=== PATIENT | female | born 2005 | race Caucasian/White ===

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

== ENCOUNTER 2024-11-28 17:14 | Emergency (ER) | payer OTHER, SELFPAY ==
[2024-11-28 17:22] VITALS: BP 148/72; PULSE 88; RESP 16; TEMP 37.1; O2SAT 100
--- NOTE | 2024-11-28 17:39 | ED.URI ---
HPI - URI/Sore Throat General Chief Complaint: Upper Respiratory Infection Stated Complaint: Cough/SOB/Dizziness Time Seen by Provider: 11/28/24 17:40 Source: patient, RN notes reviewed and old records reviewed Mode of arrival: ambulatory Limitations: no limitations History of Present Illness HPI Narrative: Patient presents with complaints of URI symptoms and cough for a couple of weeks. She reports that she has tried multiple [id number] remedies. Has episodes where she is feeling better, then ends up feeling worse again. She reports intermittent fevers, productive cough, intermittent dizziness. She denies any falls as results of her dizziness and is not dizzy at this time. She reports this symptom has come and go throughout the course of her illness. She reports most bothersome symptom is her productive cough. She has had multiple sick contacts. Related Data Home Medications ?Medication ?Instructions ?Recorded ?Confirmed ?Last Taken ?Type dextroamphetamine-amphetamine ER 50 mg PO DAILY 12/11/22 11/28/24 Unknown History 50 mg capsule,3 bead,ext release 24hr (Mydayis) ergocalciferol (vitamin D2) 1,250 1,250 mcg PO WEEKLY 12/11/22 11/28/24 Unknown History mcg (50,000 unit) capsule fluoxetine 20 mg capsule 20 mg PO DAILY 12/11/22 11/28/24 Unknown History hydroxyzine HCl 10 mg tablet 10 mg PO DAILY PRN Anxiety 12/11/22 11/28/24 Unknown History cyclobenzaprine 5 mg tablet 5 mg PO DIRECTED 05/07/23 11/28/24 Unknown History norethindrone 1 mg-ethinyl 1 tablet PO DAILY 11/28/24 11/28/24 Unknown History estradiol 20 mcg (21)-iron 75 mg (7) tablet (Blisovi Fe 12/21 ()) Allergies Allergy/AdvReac Type Severity Reaction Status Date / Time amoxicillin Allergy Unknown Hives / Verified 11/28/24 17:20 Red Face amphetamine Allergy Unknown rash, Verified 11/28/24 17:20 nausea dextroamphetamine Allergy Unknown rash, Verified 11/28/24 17:20 nausea Review of Systems Review of Systems: All systems reviewed & are unremarkable except as noted in HPI and below Constitutional: Constitutional: Reports no additional constitutional complaints ENT: Reports system reviewed and no additional complaints, except as documented and Reports nasal discharge Cardiovascular: Cardiovascular: Reports no additional cardiovascular complaints Respiratory: Respiratory: Reports no additional respiratory complaints, Reports change in phlegm color, Reports chest congestion, Reports cough and Reports excessive phlegm production Gastrointestinal: Gastrointestinal: Reports no additional gastrointestinal complaints PMF Past Medical History Medical History ADHD Anxiety Asthma Colon ulcer Depression Endometriosis Trigeminal neuralgia Surgical History Surgical History History of tonsillectomy Social History Social History Smoking status: Never smoker Alcohol intake: never Substance use: never Gender identity (if verbalized by the patient): Female Comments At the time of my signature, I reviewed and agree with the nursing past medical, surgical, social, and family history. There is no relevant family history pertinent to the patient complaint. Exam Const: General: cooperative, no acute distress, alert and awake Orientation/consciousness: oriented to person, oriented to place and oriented to time HENMT: Head: normal to inspection Ears: TM's normal bilaterally Mouth: Yes moist mucous membranes Throat: posterior oropharynx abnormal erythema Resp: Effort & Inspection: normal respiratory effort and able to speak in complete sentences Auscultation: clear to auscultation bilaterally, crackles on the right in the lower lung olson, no rales, no rhonchi and no wheezes Cardio: Palpation: normal PMI Rate: regular rate Rhythm: regular rhythm Heart sounds: S1 normal heart sound present and S2 normal heart sound present Neuro: General: oriented to person, oriented to place and oriented to time Cranial nerves: Yes CN's II-XII intact bilaterally Psych: Appearance: grossly normal Thought process: Normal thought process present Insight: Good insight present (Psych) Judgement: Good judgement present (Psych) Course Course Level of Care: Express Care Visit Vital Signs Vital signs: Vital Signs Temperature 98.8 F 11/28/24 17:22 Pulse Rate 88 11/28/24 17:22 Respiratory Rate 16 11/28/24 17:22 Blood Pressure 148/72 H 11/28/24 17:22 Pulse Oximetry 100 11/28/24 17:22 Oxygen Delivery Room Air 11/28/24 17:22 Temperature 98.8 F 11/28/24 17:22 Pulse Rate 88 11/28/24 17:22 Respiratory Rate 16 11/28/24 17:22 Blood Pressure 148/72 H 11/28/24 17:22 Pulse Oximetry 100 11/28/24 17:22 Oxygen Delivery Room Air 11/28/24 17:22 Reviewed MDM - URI/Sore Throat MDM Narrative Medical decision making narrative: History and exam consistent with of atypical pneumonia that is prevalent within the community at this time. Patient with asthma as well. Start azithromycin, bronchodilators, prednisone. Patient nontoxic appearing, stable for discharge home. Discharge instructions reviewed with patient, as well as provided in writing per nursing staff. The instructions also include specific and strict return/GO TO THE ER as well as f/u information. All questions have been answered, and the patient deny any further questions with discharge and discharge plan. Ne Some parts of this dictation were generated by voice recognition software and may contain typographical and/or grammatical inaccuracies. Differential Diagnosis Differential diagnosis: Likely upper respiratory infection, otitis media, viral infection, influenza and pharyngitis Medical Records Attestation: I reviewed the patient's medical records. Lab Data Attestation: I reviewed the patient's lab results. Discharge Plan Discharge Clinical Impression: Atypical pneumonia Patient Disposition: Home, Self-Care Condition: Stable Instructions: Antibiotic Form, Community Acquired Pneumonia (ED) Additional Instructions: Take medications as prescribed. Follow-up with primary care provider. Emergency department for new or worse symptoms Patient Language: Divehi Prescriptions: New azithromycin 250 mg tablet See Rx Instructions .ROUTE .COMPLEX Qty: 6 0RF Rx Instructions: For 250 mg dose pack: take 500 mg today (day 1), then 250 mg for 4 days (days 2-5) prednisone 50 mg tablet 50 mg PO DAILY Qty: 5 0RF albuterol sulfate [Ventolin HFA] 90 mcg/actuation HFA aerosol inhaler 2 puff inhalation QID PRN (Reason: shortness of breath or wheezing) Qty: 8.5 0RF azithromycin 250 mg tablet See Rx Instructions .ROUTE .COMPLEX Qty: 6 0RF Rx Instructions: For 250 mg dose pack: take 500 mg today (day 1), then 250 mg for 4 days (days 2-5) prednisone 50 mg tablet 50 mg PO DAILY Qty: 5 0RF albuterol sulfate [Ventolin HFA] 90 mcg/actuation HFA aerosol inhaler 2 puff inhalation QID PRN (Reason: shortness of breath or wheezing) Qty: 8.5 0RF No Action ergocalciferol (vitamin D2) 1,250 mcg (50,000 unit) capsule 1,250 mcg PO WEEKLY hydroxyzine HCl 10 mg tablet 10 mg PO DAILY PRN (Reason: Anxiety) fluoxetine 20 mg capsule 20 mg PO DAILY dextroamphetamine-amphetamine [Mydayis] 50 mg capsule, ER triphasic 24 hr 50 mg PO DAILY cyclobenzaprine 5 mg tablet 5 mg PO DIRECTED norethindrone-e.estradiol-iron [Blisovi Fe 12/21 (28)] 1 mg-20 mcg (21)/75 mg (7) tablet 1 tablet PO DAILY Follow-up/Referrals: Jory,JANETH Weber [Primary Care Provider] - 2 Weeks Stand Alone Forms: Work/School Release IP Time of Disposition: 17:53
== END 2024-11-28 18:12 | disposition home or self-care (01) ==
PROVIDERS: Emergency Provider Nurse Practitioner Family; PCP Nurse Practitioner
DX: J18.9 Pneumonia, unspecified organism (principal); J45.909 Unspecified asthma, uncomplicated; N80.9 Endometriosis, unspecified; F90.9 Attention-deficit hyperactivity disorder, unspecified type; F41.9 Anxiety disorder, unspecified; F32.A Depression, unspecified
CPT/HCPCS: 99213; G0463

== ENCOUNTER 2025-01-28 13:54 | Emergency (ER) | payer OTHER, SELFPAY ==
[2025-01-28 14:23] VITALS: BP 149/91; PULSE 95; RESP 16; TEMP 36.6; O2SAT 100
--- NOTE | 2025-01-28 15:51 | ED.FEMALEGU ---
HPI - Female Genitourinary General Chief complaint: Vaginal Bleeding <Shana Javier PA-C - Last Filed: 01/29/25 11:39> Stated complaint: lower bad pain, heavy vag bleeding <Shana Javier PA-C - Last Filed: 01/29/25 11:39> Time Seen by Provider: 01/28/25 15:51 <Shana Javier PA-C - Last Filed: 01/29/25 11:39> Focused HPI: This is a 19 year old female that presents to the ER for vaginal bleeding. Reports she recently switched from the Nuva ring to the pill. She has been having sharp right lower abdominal pain since last night. Reports heavy vaginal bleeding. She saw her OB who sent her to the ER to r/o ectopic or cyst. GENERAL: Well-appearing, well-nourished, and in no acute distress. HEAD: Normocephalic, atraumatic. CHEST: Clear to auscultation. ?No respiratory distress. HEART: Regular rate and rhythm.? NEURO: ?Alert and oriented x3. Patient screened in triage and initial orders placed.? ?Additional care and disposition to be based upon?diagnostic testing and treatment. <Shana Javier PA-C - Last Filed: 01/29/25 11:39> History of Present Illness HPI Narrative: I agree with the assessment and documentation of Shana Javier PA-C. <Destini Gonzalez APRN - Last Filed: 01/28/25 22:33> Related Data Home medications: Home Medications ?Medication ?Instructions ?Recorded ?Confirmed ?Last Taken ?Type dextroamphetamine-amphetamine ER 50 mg PO DAILY 12/11/22 11/28/24 Unknown History 50 mg capsule,3 bead,ext release 24hr (Mydayis) ergocalciferol (vitamin D2) 1,250 1,250 mcg PO WEEKLY 12/11/22 11/28/24 Unknown History mcg (50,000 unit) capsule fluoxetine 20 mg capsule 20 mg PO DAILY 12/11/22 11/28/24 Unknown History hydroxyzine HCl 10 mg tablet 10 mg PO DAILY PRN Anxiety 12/11/22 11/28/24 Unknown History cyclobenzaprine 5 mg tablet 5 mg PO DIRECTED 05/07/23 11/28/24 Unknown History norethindrone 1 mg-ethinyl 1 tablet PO DAILY 11/28/24 11/28/24 Unknown History estradiol 20 mcg (21)-iron 75 mg (7) tablet (Blisovi Fe 12/21 ()) <Shana Javier PA-C - Last Filed: 01/29/25 11:39> Allergies/Adverse reactions: Allergies Allergy/AdvReac Type Severity Reaction Status Date / Time amoxicillin Allergy Unknown Hives / Verified 01/28/25 14:23 Red Face amphetamine Allergy Unknown rash, Verified 01/28/25 14:23 nausea dextroamphetamine Allergy Unknown rash, Verified 01/28/25 14:23 nausea <Shana Javier PA-C - Last Filed: 01/29/25 11:39> Review of Systems Review of Systems: All systems reviewed & are unremarkable except as noted in HPI and below <Destini Gonzalez APRN - Last Filed: 01/28/25 22:33> PMFSH Past Medical History Medical History: Medical History Colon ulcer Endometriosis ADHD Anxiety Depression Asthma Trigeminal neuralgia <Shana Javier PA-C - Last Filed: 01/29/25 11:39> Surgical History Surgical History: Surgical History History of tonsillectomy <Shana Javier PA-C - Last Filed: 01/29/25 11:39> Social History Social History: Social History Smoking status: Never smoker Alcohol intake: never Substance use: never Gender identity (if verbalized by the patient): Female <Shana Javier PA-C - Last Filed: 01/29/25 11:39> Exam Narrative: GENERAL: Well appearing, well-nourished, non-toxic, in no acute distress. HEAD: Normocephalic, atraumatic. NECK: Supple. No adenopathy, no masses. RESPIRATORY: Airway patent, respirations nonlabored. Clear to auscultation bilaterally, no rales, rhonchi, wheezing. CARDIOVASCULAR: Regular rate and rhythm without murmurs, rubs, or gallops. Peripheral pulses 2+ and equal bilaterally. ABDOMINAL: Soft, + tender, + guarding, + Amin's sign, nondistended, no hepatosplenomegaly. Normoactive BS. MUSCULOSKELETAL: Moves all extremities. Strength/ROM intact without gross deformities. SKIN: Warm, dry, normal color. No rashes. NEURO: A&O X3. Speech clear. Cranial nerves II-XII grossly intact. Steady gait. No ataxic movements. PSYCHIATRIC: Appropriate mood and affect. Normal interaction. <Destini Gonzalez, JANETH - Last Filed: 01/28/25 22:33> Course Vital Signs Vital signs: Vital Signs Temperature 97.9 F 01/28/25 14:23 Pulse Rate 95 01/28/25 14:23 Respiratory Rate 16 01/28/25 14:23 Blood Pressure 149/91 H 01/28/25 14:23 Pulse Oximetry 100 01/28/25 14:23 Oxygen Delivery Room Air 01/28/25 14:23 Temperature 97.9 F 01/28/25 14:23 Pulse Rate 66 01/28/25 19:32 Respiratory Rate 17 01/28/25 19:32 Blood Pressure 123/82 01/28/25 19:32 Pulse Oximetry 100 01/28/25 19:32 Oxygen Delivery Room Air 01/28/25 14:23 <Shana Javier PA-C - Last Filed: 01/29/25 11:39> Vital Signs Temperature 97.9 F 01/28/25 14:23 Pulse Rate 95 01/28/25 14:23 Respiratory Rate 16 01/28/25 14:23 Blood Pressure 149/91 H 01/28/25 14:23 Pulse Oximetry 100 01/28/25 14:23 Oxygen Delivery Room Air 01/28/25 14:23 Temperature 97.9 F 01/28/25 14:23 Pulse Rate 66 01/28/25 19:32 Respiratory Rate 17 01/28/25 19:32 Blood Pressure 123/82 01/28/25 19:32 Pulse Oximetry 100 01/28/25 19:32 Oxygen Delivery Room Air 01/28/25 14:23 <Destini Gonzalez APRN - Last Filed: 01/28/25 22:33> MDM - Female Genitourinary [facility] Narrative Medical decision making narrative: This is a 19 year old female that presents to the ER for vaginal bleeding. Reports she recently switched from the Nuva ring to the pill. She has been having sharp right lower abdominal pain since last night. Reports heavy vaginal bleeding. She saw her OB who sent her to the ER to r/o ectopic or cyst. Labs Ordered: CBC, CMP, PTT, INR, urinalysis, beta hCG quant Imaging Ordered: Pelvic TV ultrasound, CT abdomen pelvis Medications Ordered: Toradol 60 mg IM, Tylenol 1000 mg p.o., Macrobid p.o., Diflucan p.o., 1 L normal saline IV bolus Results: Patient's pelvic transvaginal ultrasound indicated a normal pelvic ultrasound. Risks: RPIASA score concerning for appendicitis, 1829-plan to do an abdominal/pelvis CT scan RIPASA Score for Acute Appendicitis from [facility] on 01/28/2025 All calculations should be rechecked by clinician prior to use RESULT SUMMARY: 8 points Likely appendicitis. The cutoff value of 7.5 points was 98% sensitive and 81% specific for diagnosis of appendicitis. INPUTS: Sex ?> 0.5 = Female Age ?> 1 = <=0 Foreign national ?> 0 = No Right iliac fossa (RIF) pain ?> 0 = No Pain migration to RIF ?> 0.5 = Yes Anorexia ?> 0 = No Nausea & vomiting ?> 0 = No Duration of symptoms ?> 1 = <=8 hrs RIF tenderness ?> 0 = No Guarding ?> 2 = Yes Rebound tenderness ?> 1 = Yes Rovsing sign ?> 2 = Yes Temperature between 37?C and 39?C ?> 0 = No Elevated white blood cell count ?> 0 = No Negative urine analysis (abscence of blood, WBCs, bacteria) ?> 0 = No Diagnosis: UTI, awaiting CT results for complete diagnosis-pt left before treatment complete Consults: Pt left before treatment complete Patient Education/Shared MDM: 183- Upon re-examination after Toradol administration, pt continues to have significant RLQ pain that increases with palpation, + Amin's sign, + guarding IV placed, Normal Saline IV bolus ordered, CT scan order placed 2199-Pt endorses improvement following medication administration. She was advised we are still awaiting CT scan results. 2229-Pt left before treatment complete. Stable at time of leaving ED. <Destini Gonzalez APRN - Last Filed: 01/28/25 22:33> Differential Diagnosis Differential diagnosis: Likely urinary tract infection, ovarian cyst, ruptured ovarian cyst, cyst of Bartholin's gland and cystitis <Destini Gonzalez APRN - Last Filed: 01/28/25 22:33> Lab Data Attestation: I reviewed the patient's lab results. <Destini Gonzalez APRN - Last Filed: 01/28/25 22:33> Result diagrams: 01/28/25 16:22 01/28/25 16:22 <Shana Javier PA-C - Last Filed: 01/29/25 11:39> Labs: Lab Results 01/28/25 01/28/25 Range/Units 16:22 16:33 WBC 9.1 (4.5-10.0) K/mm3 RBC 4.33 (4.2-5.4) M/mm3 Hgb 12.6 (12.0-15.0) g/dL Hct 37.5 (37.0-47.0) % MCV 86.6 (80-100) fl MCH 29.1 (26-34) pg MCHC 33.6 (32-36) g/dl RDW 11.9 (11.5-14.5) % Plt Count 206 (150-375) k/mm3 MPV 12.2 H (7.4-10.4) fl Immature Gran % (Auto) 0.2 (0-0.5) % Neut % (Auto) 66.4 (45.5-73.1) % Lymph % (Auto) 24.9 (18.3-44.2) % Curry % (Auto) 5.4 (2.6-8.5) % Eos % (Auto) 2.5 (0-4.4) % Baso % (Auto) 0.6 (0.2-1.2) % Lymph # (Auto) 2.26 (0.9-3.2) K/mm3 Curry # (Auto) 0.5 (0.1-0.6) K/mm3 Eos # (Auto) 0.2 (0-0.3) K/mm3 Baso # (Auto) 0.1 (0.0-0.1) K/mm3 Abs Immat Gran (auto) 0.02 (0.00-0.031) K/mm3 Absolute Neuts (auto) 6.0 (1.3-6.7) K/mm3 Absolute Nucleated RBC 0.000 (0.0-0.012) K/mm3 Nucleated RBC % 0.0 (0.0-0.2) % PT 12.7 (11.1-14.7) Seconds INR 0.9 APTT 26.0 (22.3-36.8) Seconds Sodium 140 (137-145) mmol/L Potassium 4.0 (3.4-5.0) mmol/L Chloride 106 (98-107) mmol/L Carbon Dioxide 24 (22-30) mmol/L Anion Gap 10 (4-12) mmol/L BUN 10 (7-17) mg/dL Creatinine 0.61 L (0.7-1.0) mg/dL Estim Creat Clear Calc 150 ml/min Estimated GFR > 60 (59 - ) Glucose 86 (65-110) mg/dL Calcium 9.4 (8.4-10.2) mg/dL Total Bilirubin 0.5 (0.2-1.3) mg/dL AST 21 (14-36) U/L ALT 23 (6-35) U/L Alkaline Phosphatase 51 (38-126) U/L Total Protein 8.0 (6.3-8.2) g/dL Albumin 4.6 (3.5-5.1) g/dL Beta HCG, Quant < 2.39 mIU/ML Urine Color Yellow (Yellow) Urine Appearance Clear (Clear) Urine pH 7.5 (5.0-9.0) Ur Specific [place] 1.018 (1.001-1.035) Urine Protein Trace (Negative) mg/dL Urine Glucose (UA) Negative (Negative) mg/dL Urine Ketones Negative (Negative) mg/dL Ur Blood (Man) 3+ H (Negative) Urine Nitrate Negative (Negative) Urine Bilirubin Negative (Negative) Urine Urobilinogen 0.2 (<2.0) mg/dL Leukocyte Esterase Rfl 2+ H (Negative) PAUL/UL Urine RBC >100 H (0-2) /hpf Urine WBC 21-50 H (0-3) /hpf Ur Squamous Epith Cells None seen (Few) /hpf Urine Bacteria None seen /hpf Urine Casts 0-2 POC Urine HCG, Qual Negative (Negative) <Shana Javier PA-C - Last Filed: 01/29/25 11:39> Lab Results 01/28/25 01/28/25 Range/Units 16:22 16:33 WBC 9.1 (4.5-10.0) K/mm3 RBC 4.33 (4.2-5.4) M/mm3 Hgb 12.6 (12.0-15.0) g/dL Hct 37.5 (37.0-47.0) % MCV 86.6 (80-100) fl MCH 29.1 (26-34) pg MCHC 33.6 (32-36) g/dl RDW 11.9 (11.5-14.5) % Plt Count 206 (150-375) k/mm3 MPV 12.2 H (7.4-10.4) fl Immature Gran % (Auto) 0.2 (0-0.5) % Neut % (Auto) 66.4 (45.5-73.1) % Lymph % (Auto) 24.9 (18.3-44.2) % Curry % (Auto) 5.4 (2.6-8.5) % Eos % (Auto) 2.5 (0-4.4) % Baso % (Auto) 0.6 (0.2-1.2) % Lymph # (Auto) 2.26 (0.9-3.2) K/mm3 Curry # (Auto) 0.5 (0.1-0.6) K/mm3 Eos # (Auto) 0.2 (0-0.3) K/mm3 Baso # (Auto) 0.1 (0.0-0.1) K/mm3 Abs Immat Gran (auto) 0.02 (0.00-0.031) K/mm3 Absolute Neuts (auto) 6.0 (1.3-6.7) K/mm3 Absolute Nucleated RBC 0.000 (0.0-0.012) K/mm3 Nucleated RBC % 0.0 (0.0-0.2) % PT 12.7 (11.1-14.7) Seconds INR 0.9 APTT 26.0 (22.3-36.8) Seconds Sodium 140 (137-145) mmol/L Potassium 4.0 (3.4-5.0) mmol/L Chloride 106 (98-107) mmol/L Carbon Dioxide 24 (22-30) mmol/L Anion Gap 10 (4-12) mmol/L BUN 10 (7-17) mg/dL Creatinine 0.61 L (0.7-1.0) mg/dL Estim Creat Clear Calc 150 ml/min Estimated GFR > 60 (59 - ) Glucose 86 (65-110) mg/dL Calcium 9.4 (8.4-10.2) mg/dL Total Bilirubin 0.5 (0.2-1.3) mg/dL AST 21 (14-36) U/L ALT 23 (6-35) U/L Alkaline Phosphatase 51 (38-126) U/L Total Protein 8.0 (6.3-8.2) g/dL Albumin 4.6 (3.5-5.1) g/dL Beta HCG, Quant < 2.39 mIU/ML Urine Color Yellow (Yellow) Urine Appearance Clear (Clear) Urine pH 7.5 (5.0-9.0) Ur Specific [place] 1.018 (1.001-1.035) Urine Protein Trace (Negative) mg/dL Urine Glucose (UA) Negative (Negative) mg/dL Urine Ketones Negative (Negative) mg/dL Ur Blood (Man) 3+ H (Negative) Urine Nitrate Negative (Negative) Urine Bilirubin Negative (Negative) Urine Urobilinogen 0.2 (<2.0) mg/dL Leukocyte Esterase Rfl 2+ H (Negative) PAUL/UL Urine RBC >100 H (0-2) /hpf Urine WBC 21-50 H (0-3) /hpf Ur Squamous Epith Cells None seen (Few) /hpf Urine Bacteria None seen /hpf Urine Casts 0-2 POC Urine HCG, Qual Negative (Negative) <Destini Gonzalez APRN - Last Filed: 01/28/25 22:33> Imaging Data Attestation: I personally reviewed and interpreted this imaging study as follows: <Destini Gonzalez APRN - Last Filed: 01/28/25 22:33> Radiologist's impression: Impressions Pelvic/Transvag US 01/28/25 18:03 IMPRESSION: normal pelvic ultrasound. <Destini Gonzalez APRN - Last Filed: 01/28/25 22:33> Critical Care Time Critical Care Time Critical Care Time: No <Shana Javier PA-C - Last Filed: 01/29/25 11:39> Discharge Plan Discharge Clinical Impression: Dysfunctional uterine bleeding, Right lower quadrant abdominal pain Urinary tract infection Qualifiers: Urinary tract infection type: acute cystitis Hematuria presence: without hematuria Qualified Code(s): N30.00 - Acute cystitis without hematuria <Shana Javier PA-C - Last Filed: 01/29/25 11:39> Patient Disposition: Elopement After Seen by Prov <Shana Javier PA-C - Last Filed: 01/29/25 11:39> Condition: Stable <MICHAEL Kohler Last Filed: 01/29/25 11:39> Patient Language: Japanese <Shana Javier PA-C - Last Filed: 01/29/25 11:39> Prescriptions: New nitrofurantoin monohyd/m-cryst [Macrobid] 100 mg capsule 100 mg PO Q12H 5 Days Qty: 10 0RF Rx Instructions: must administer with a meal/food No Action ergocalciferol (vitamin D2) 1,250 mcg (50,000 unit) capsule 1,250 mcg PO WEEKLY hydroxyzine HCl 10 mg tablet 10 mg PO DAILY PRN (Reason: Anxiety) fluoxetine 20 mg capsule 20 mg PO DAILY dextroamphetamine-amphetamine [Mydayis] 50 mg capsule, ER triphasic 24 hr 50 mg PO DAILY cyclobenzaprine 5 mg tablet 5 mg PO DIRECTED norethindrone-e.estradiol-iron [Blisovi Fe 12/21 (28)] 1 mg-20 mcg (21)/75 mg (7) tablet 1 tablet PO DAILY azithromycin 250 mg tablet See Rx Instructions .ROUTE .COMPLEX Qty: 6 0RF Rx Instructions: For 250 mg dose pack: take 500 mg today (day 1), then 250 mg for 4 days (days 2-5) prednisone 50 mg tablet 50 mg PO DAILY Qty: 5 0RF albuterol sulfate [Ventolin HFA] 90 mcg/actuation HFA aerosol inhaler 2 puff inhalation QID PRN (Reason: shortness of breath or wheezing) Qty: 8.5 0RF azithromycin 250 mg tablet See Rx Instructions .ROUTE .COMPLEX Qty: 6 0RF Rx Instructions: For 250 mg dose pack: take 500 mg today (day 1), then 250 mg for 4 days (days 2-5) prednisone 50 mg tablet 50 mg PO DAILY Qty: 5 0RF albuterol sulfate [Ventolin HFA] 90 mcg/actuation HFA aerosol inhaler 2 puff inhalation QID PRN (Reason: shortness of breath or wheezing) Qty: 8.5 0RF <Shana Javier PA-C - Last Filed: 01/29/25 11:39> Follow-up/Referrals: Jory,JANETH Weber [Primary Care Provider] - <Shana Javier PA-C - Last Filed: 01/29/25 11:39> Time of Disposition: 22:33 <Shana Javier PA-C - Last Filed: 01/29/25 11:39> 22:33 <Destini Gonzalez APRN - Last Filed: 01/28/25 22:33>
[2025-01-28] MEDS: ACETAMINOPHEN 500 MG TABLET 1000 MG PO (16:14)
[2025-01-28 16:31] LABS: Basophils Absolute Auto 0.1 K/mm3 (0.0-0.1); Basophils Percent Auto 0.6 % (0.2-1.2); Eosinophils Absolute Auto 0.2 K/mm3 (0-0.3); Eosinophils Percent Auto 2.5 % (0-4.4); Hematocrit 37.5 % (37.0-47.0); Hemoglobin 12.6 g/dL (12.0-15.0); Immature Granulocyte Absolute 0.02 K/mm3 (0.00-0.031); Immature Granulocyte Percent A 0.2 % (0-0.5); Lymphocytes Absolute Auto 2.26 K/mm3 (0.9-3.2); Lymphocytes Percent Auto 24.9 % (18.3-44.2); Mean Corpuscular HGB Conc 33.6 g/dl (32-36); Mean Corpuscular Hemoglobin 29.1 pg (26-34); Mean Corpuscular Volume 86.6 fl (80-100); Mean Platelet Volume 12.2 fl (7.4-10.4); Monocytes Absolute Auto 0.5 K/mm3 (0.1-0.6); Monocytes Percent Auto 5.4 % (2.6-8.5); Neutrophils Percent Auto 66.4 % (45.5-73.1); Platelet Count Result 206 k/mm3 (150-375); Red Blood Count 4.33 M/mm3 (4.2-5.4); Red Cell Distribution Width 11.9 % (11.5-14.5); White Blood Count 9.1 K/mm3 (4.5-10.0)
[2025-01-28 16:34] LABS: Add Urine Microscopic? YES; Appearance Urine Clear (Clear); Bacteria Urine None Seen /hpf; Bilirubin Urine Negative (Negative); Blood Urine 3+ (Negative); Color Urine Yellow (Yellow); Glucose Urine UA Negative (Negative); Ketones Urine Negative (Negative); Leukocyte Esterase Ur 2+ LEU/UL (Negative); Nitrate Urine Negative (Negative); Non Pathogenic Casts 0-2; Protein Urine Trace mg/dL (Negative); RBC Urine >100 /hpf (0-2); Specific Grav Ur 1.018 (1.001-1.035); Squamous Epithelial Cell Urine None Seen /hpf (Few); Urobilinogen Urine 0.2 mg/dL (<2.0); WBC Urine 21-50 /hpf (0-3); pH Urine 7.5 (5.0-9.0)
[2025-01-28 16:35] LABS: BEDSIDEPREGUCG Negative (Negative)
[2025-01-28 16:41] LABS: Alanine Aminotransferase 23 U/L (6-35); Albumin Level 4.6 g/dL (3.5-5.1); Alkaline Phosphatase 51 U/L (38-126); Anion Gap 10 mmol/L (4-12); Aspartate Amino Transferase 21 U/L (14-36); Bilirubin,Total 0.5 mg/dL (0.2-1.3); Blood Urea Nitrogen 10 mg/dL (7-17); Calcium 9.4 mg/dL (8.4-10.2); Carbon Dioxide 24 mmol/L (22-30); Chloride 106 mmol/L (98-107); Estimated CRCL calculation 150 ml/min; Estimated Glomerular Filt Rate > 60; Glucose 86 mg/dL (65-110); Sodium 140 mmol/L (137-145)
[2025-01-28 16:46] LABS: INR 0.9; Prothrombin Time 12.7 Seconds (11.1-14.7)
[2025-01-28 16:58] LABS: Beta HCG Quantitative < 2.39 mIU/ML
[2025-01-28] MEDS: KETOROLAC (*BKC) 60 MG/2 ML VIAL IM (18:06)
[2025-01-28] MEDS: NITROFURANTOIN MONOHYD MACROCR 100 MG CAP PO (18:06)
[2025-01-28] MEDS: FLUCONAZOLE 100 MG TABLET PO (18:06)
[2025-01-28] MEDS: SODIUM CHLORIDE 0.9% IV 1,000 ML 999 ML IV CONT (18:58)
[2025-01-28 19:32] VITALS: BP 123/82; PULSE 66; RESP 17; O2SAT 100
== END 2025-01-28 22:16 | disposition left against medical advice (07) ==
PROVIDERS: Physician Assistant; Emergency Provider Registered Nurse; PCP Nurse Practitioner
DX: N93.8 Other specified abnormal uterine and vaginal bleeding (principal); N30.00 Acute cystitis without hematuria; R10.31 Right lower quadrant pain; J45.909 Unspecified asthma, uncomplicated; N80.9 Endometriosis, unspecified; Z79.3 Long term (current) use of hormonal contraceptives; F41.9 Anxiety disorder, unspecified; F32.A Depression, unspecified; Z79.899 Other long term (current) drug therapy; N83.02 Follicular cyst of left ovary; N83.01 Follicular cyst of right ovary
CPT/HCPCS: 36415; 74177; 76830; 76856; 80053; 81001; 81025; 84702; 85025; 85610; 85730; 87086; 96372; 99284; A9270; J1885; J7030; Q9967

== ENCOUNTER 2025-09-16 09:03 | Emergency (ER) | payer OTHER, SELFPAY ==
--- OUTSIDE RECORDS SUMMARY | 2025-09-15 10:37 | XMS_ITS | Encounter Summary ---
Author Organization [facility] Address [address] [place] [address] Care Team Providers Care Illuminating Engineer Name Role Phone Jory, Tia ARSENIO Primary Care Provider [phone] Reason for Referral * Imaging (Emergency) - New Request Specialty Diagnoses / Procedures Referred By Jade burks Referred To Contact RADIOLOGY Procedures US OB TRANSVAG Mariaa Guerra APRN [address] [place] [address] Phone: tel: fax: Referral ID Status Reason Start Date Expiration Date V isits Requested Visits Authorized [id number] New Request 09/15/2025 09/15/2026 1 1 Reason for Visit * Reason Comments Vaginal Bleeding Encounter Details Date Type Department Care Team (Late st Contact Info) Description 09/15/2025 10:37 AM CDT - 09/15/2025 1:53 PM CDT Emergency [facility] [place] [address] Mariaa Guerra APRN [address] [place] [address] Vaginal Bleeding Discharge Disposition: Home or Self Care (Routine Discharge) Social History Tobacco Use Types Packs/Day Years Used Date Smoking Tobacco: Never Passive Smoke Exposure: Never Smokeless Tobacco: Never Alcohol Use Standard Drinks/Week Comments Not Currently 0 (1 standard drink = 0.6 oz pur e alcohol) AUDIT-C Answer Date Recorded Frequency of Alcohol Consumption Never 01/19/2019 Average Number of Drinks Not on file 019 Frequency of Binge Drinking Not on file 01/02 PHQ-2 Answer Date Recorded Patient Health Questionnaire-2 Score 0 06/23/2025 Comments Yes Sex and Gender Information Value Date Recorded Sex Assigned at Female 03/23/2025 12:06 PM CDT Legal Sex Female 9:26 PM CDT Gender Identity Not on file Sexual Orientation Not on file documented as of this encounter Last Filed Vital Signs Vital Sign Reading Time Taken Comments Blood Pressure 124/72 09/15/2025 1:00 PM CDT Pulse 116 09/15/2025 10:28 AM CDT Temperature 36.8 C (98.3 F) 09/15/2025 10:28 AM CDT Respiratory Rate 18 09/15/2025 10:28 AM CDT Oxygen Saturation 99% 09/15/2025 1:00 PM CDT Inhaled Oxygen Concentration - - Weight 93.5 kg (206 lb 2.1 oz) 09/15/2025 10:28 AM CDT Height 172.7 cm (5' 8) 09/15/2025 10:28 AM CDT Body Mass Index 31.34 09/15/2025 10:28 AM CDT documented in this encounter Functional Status * Calculated C-SSRS Risk Score (Lifetime/Recent) Answer Date of Assessment Author Status No Risk Indicated 09/15/2025 10:30 AM CDT Lorne Orozco RN Active * [place] Suicide Severity Rating Scale (Screener/Recent Self-Report) Question Answer Date of Assessment Author Status 1. Wish to be (Past 1 Month) No 09/15/2025 10:30 AM IBANT Cecilia Orozco, TITI landinve 2. Non-Specific Active Suicidal Thoughts (Past 1 Month) No 09/15/2025 10:30 AM CDT Cecilia Orozco, TITI Mora tive 6. Suicidal Behavior (Lifetime) No 09/15/2025 10:30 AM IBANT Cecilia Orozco, TITI najera documented as of this encounter Discharge Instructions * Discharge Instructions* Mariaa Guerra APRN - 09/15/2025 10:59 AM CDT Make sure that you are drinking plenty of fluids. Pelvic rest. Pelvic rest means that absolutely noinsertions of any kind into the vagina. Do not perform any overly strenuous activities. Follow-up with your WREATH MACHINE TENDER for reevaluation. Seek immediate evaluation for any concerns such as heavy bleeding or severe abdominal pain. If this occurs please return directly to emergency room for reevaluation. Emergency Departments (ED) provide medical screening exams and initial stabilizing treatment of emergency medical conditions. Medicine is an inexact science and many conditions cannot be diagnosed orcompletely treated during a single ED visit. Your treating healthcare provider(s) today feel your condition has been stabilized so further care as an outpatient is reasonable. Emergency care does notsubstitute for complete, ongoing, or follow-up care by your primary care physician or sourcing consultant. Your medication list was reviewed prior to treatment, and at discharge, by the treating provider for the purpose of this outpatient visit only. Please review this entire medication list with your pharmacist, primary care physician, and specialist(s). It is your responsibility to share any new medication instructions you received this visit with your doctor(s). Although no medicine is without risk, your healthcare provider today feels reasonable decisions were made concerning starting new medications and stopping or changing the dosages of your usual medications until you receive follow-up care. Take medications only as directed. Many medications can cause drowsiness, especially those for pain, anxiety, muscle spasms, nausea, and allergies. DO NOT drive, drink alcohol, operate power machinery, or participate in potentially dangerous activities if taking medicines that make you tired. Chronic pain is best managed by pain specialists or primary care physicians, so narcotic refills are not routinely dispensed in the ED. DO NOT take multiple medications containing acetaminophen (Tylenol), such as many narcotic drug combinations and itst-rfm-uznievt cold medicines. Your feedback is important to us. Please fill out the survey you will get in the mail. We need yourinput to give you the best care possible! With your feedback we??ll know where we need to focus ourefforts to provide very good service to our patients! DARI Chavez [employer] * Attachments The following attachments cannot be sent through Care Everywhere. * Bleeding In Early (Serbian) * Quitting smoking for adults (Serbian) documented in this encounter Medications at Time of Discharge albuterol sulfate HFA (VENTOLIN HFA) 108 (90 Base) MCG/ACT inhalerIndications: Mild intermittent asthma without complication (HHS/HCC) Inhale 2 puffs into the lungs every 6 (six) hours as needed. 18 g 1 03/11/2024 BLISOVI FE 12/21 1-20 MG-MCG tabletIndications:E ncounter for contraceptive management, unspecified type TAKE 1 TABLET BY MOUTH DAILY 28 tablet 6 03/16/2025 clindamycin (CLEOCIN T) 1 % gel Apply topically 2 (two) times daily. 03/16/2025 drospirenone-ethiny l estradiol (TRAN) 3-0.03 MG tablet Take 1 tablet by mouth daily. 01/30/2025 fluticasone propionate (FLONASE) 50 MCG/ACT nasal sprayIndications:Se asonal allergic rhinitis due to other allergic trigger 1 spray by Nasal route daily. 15.8 mL 2 02/11/2024 sertraline (ZOLOFT) 50 MG tabletIndications:M uscular pain,Anxiety Take 1 tablet (50 mg total) by mouth daily. 90 tablet 1 03/23/2025 Spacer/Aero-Holding Chambers DeviceIndications:M ild intermittent asthma, unspecified whether complicated (HHS/HCC) Use with albuterol inhaler 1 each 02/11/2024 documented as of this encounter ED Notes * Tabby Poole RN - 09/15/2025 11:01 AM CDT Pt unable to provide urine sample at this time, provided with supplies for clean catch and given instructions. * Mariaa Guerra APRN - 09/15/2025 10:30 AM CDT ED NOTE Chief Complaint Chief Complaint Patient presents with Vaginal Bleeding History of Present Illness Patient arrives to emergency room today for evaluation of vaginal bleeding and cramping. Patient says that she has 4 weeks . Says her last menstrual period was June 20. Patient says this is her first . Says that she has been to an OB appointment in which they had an ultrasound performed and unable to identify a sac, but nothing further. Says the bleeding has been light. Says thather quant has been repeated and did not double as expected last being in the 500 range. Patient denies any other complaints such as fever, chills, body aches, nausea, vomiting, diarrhea, chest pain, difficulty breathing, or any other complaints. Vaginal Bleeding Medical History ALLERGIES: Review of patient's allergies indicates: Allergen Reactions Amphetamine-Dextroamphetamine Hives and Unknown Shrimp (Diagnostic) Unknown Amoxicillin GI Upset Stomach ache and rash Toradol [Ketorolac Tromethamine] Nausea Only MEDICATIONS: Prior to Admission medications Medication Sig Start Date End Date Taking? Authorizing Provider albuterol sulfate HFA (VENTOLIN HFA) 108 (90 Base) MCG/ACT inhaler Inhale 2 puffs into the lungs every 6 (six) hours as needed. 03/11/24 Tia Corley NP BLISOVI FE 12/21 1-20 MG-MCG tablet TAKE 1 TABLET BY MOUTH DAILY 03/16/25 Tia Corley NP clindamycin (CLEOCIN T) 1 % gel Apply topically 2 (two) times daily. 03/16/25 Default History Genericprovider drospirenone-ethinyl estradiol (TRAN) 3-0.03 MG tablet Take 1 tablet by mouth daily. 01/30/25 Default History Genericprovider fluticasone propionate (FLONASE) 50 MCG/ACT nasal spray 1 spray by Nasal route daily. 02/11/24 Al Guillermo DO sertraline (ZOLOFT) 50 MG tablet Take 1 tablet (50 mg total) by mouth daily. 03/23/25 09/19/25 Tia Corley NP Spacer/Aero-Holding Chambers Device Use with albuterol inhaler 02/11/24 Al Guillermo DO PAST MEDICAL HISTORY: Past Medical History: Diagnosis Date ADHD (attention deficit hyperactivity disorder) Allergy Anxiety Asthma (HHS/HCC) Depression Hypertension Neuromuscular disorder (CMS/HCC HHS/HCC) PCOS (polycystic ovarian syndrome) 03/2025 Urinary tract infection PAST SURGICAL HISTORY: Past Surgical History: Procedure Laterality Date ADENOIDECTOMY TONSILLECTOMY FAMILY HISTORY: Family History Problem Relation Name Age of Onset Asthma Mother Yuliet Gale Other (skin cancer) Mother Yuliet Gale Cancer Mother Yuliet Gale Depression Mother Yuilet Gale Early Hearing Loss Mother Yuliet Gale Stroke Maternal Grandmother Claudette gale Arthritis Maternal Grandmother Claudette gale Depression Maternal Grandmother Claudette gale Mental Health Maternal Grandmother Claudette gale Hypertension Maternal Grandfather John gale Asthma Brother Gustabo Gale Depression Brother Gustabo Gale SOCIAL HISTORY: History Smoking Status Never Smokeless Tobacco Never Social History Substance and Sexual Activity Alcohol Use Not Currently Social History Substance and Sexual Activity Drug Use Never Physical Exam Filed Vitals: 09/15/25 1028 09/15/25 1230 09/15/25 1245 BP: (!) 145/100 123/67 Pulse: (!) 116 Resp: 18 Temp: 98.3 ??F (36.8 ??C) TempSrc: Oral SpO2: 100% 99% Weight: 93.5 kg (206 lb 2.1 oz) Height: 1.727 m (5' 8) Physical Exam Vitals and nursing note reviewed. Constitutional: General: She is not in acute distress. Appearance: Normal appearance. She is well-developed. She is not ill-appearing or toxic-appearing. Comments: Nontoxic appearing HENT: Head: Normocephalic and atraumatic. Nose: Nose normal. Mouth/Throat: Mouth: Mucous membranes are moist. Pharynx: Oropharynx is clear. Eyes: Conjunctiva/sclera: Conjunctivae normal. Cardiovascular: Rate and Rhythm: Normal rate and regular rhythm. Pulses: Normal pulses. Heart sounds: Normal heart sounds. Pulmonary: Effort: Pulmonary effort is normal. No respiratory distress. Breath sounds: Normal breath sounds. Abdominal: General: Bowel sounds are normal. There is no distension. Palpations: Abdomen is soft. Tenderness: There is no abdominal tenderness. There is no guarding or rebound. Musculoskeletal: General: Normal range of motion. Cervical back: Normal range of motion and neck supple. Skin: General: Skin is warm and dry. Capillary Refill: Capillary refill takes less than 2 seconds. Neurological: General: No focal deficit present. Mental Status: She is alert and oriented to person, place, and time. Psychiatric: Mood and Affect: Mood normal. Behavior: Behavior normal. Diagnostic Studies / Procedures ELECTROCARDIOGRAMS: No results found for this visit on 09/15/25. LABORATORY STUDIES: Results for orders placed or performed during the hospital encounter of 09/15/25 CBC W/DIFF AUTOMATED Result Value Ref Range WBC 4.94 4.5 - 11.0 x10'3/uL RBC 4.00 (L) 4.20 - 5.40 x10'6/uL HGB 11.5 (L) 12.0 - 16.0 G/DL HCT 33.8 (L) 38.0 - 48.0 % MCV 84.5 81.0 - 99.0 FL MCH 28.8 27.0 - 31.0 PG MCHC 34.0 32.0 - 36.0 G/DL RDW 12.5 11.5 - 14.5 % PLT 182 130 - 400 x10'3/uL MPV 12.1 9.3 - 12.2 FL DIFFERENTIAL TYPE AUTOMATED DIFFERENTIAL NEUTROPHILS % 54.0 % LYMPHOCYTES % 34.2 % MONOCYTES % 6.1 % EOSINOPHILS 4.7 % BASOPHILS 0.8 % IMMATURE GRANS % 0.2 % ABS. NEUTROPHILS 2.67 1.80 - 7.70 x10'3/uL ABS. LYMPHOCYTES 1.69 1.00 - 4.80 x10'3/uL ABS. MONOCYTES 0.30 0.24 - 0.86 x10'3/uL ABS. EOSINOPHILS 0.23 0.04 - 0.36 x10'3/uL ABS. BASOPHILS 0.04 0.01 - 0.08 x10'3/uL ABS. IMMATURE GRANULOCYTES 0.01 0.00 - 0.49 x10'3/uL BASIC METABOLIC PANEL Result Value Ref Range GLUCOSE 96 70 - 99 MG/DL BUN 7 7 - 18 MG/DL CREATININE S/P/B 0.46 (L) 0.55 - 1.02 MG/DL SODIUM S/P/B 139 136 - 145 MMOL/L POTASSIUM S/P/B 4.0 3.5 - 5.1 MMOL/L CHLORIDE S/P/B 109 97 - 115 MMOL/L CO2 25.0 21 - 32 MMOL/L CALCIUM S/P/B 9.3 8.5 - 10.1 MG/DL ANION GAP 5.0 2 - 10 MMOL/L BUN CREATININE RATIO 15.1 6 - 26 GFR ESTIMATE >90 >90 ML/MIN/1.73 M2 URINALYSIS Result Value Ref Range SPECIMEN TYPE URINE CLEAN CATCH COLOR (U) COLORLESS TRANSPARENCY CLEAR SPECIFIC GRAVITY (U) 1.004 1.001 - 1.030 U PH 6.5 5.0 - 9.0 LEUKOCYTES (U) 25 (A) NEGATIVE NITRITES NEGATIVE NEGATIVE PROTEIN RANDOM (U) NEGATIVE <30 MG/DL GLUCOSE (U) NORMAL NORMAL MG/DL KETONES MG/DL (U) NEGATIVE NEGATIVE MG/DL UROBILINOGEN NORMAL NORMAL MG/DL BILIRUBIN (U) NEGATIVE NEGATIVE MG/DL BLOOD (U) 2+ (A) NEGATIVE MUCUS RARE /LPF WBC/HPF 1 <6 /HPF RBC/HPF <1 <6 /HPF SQUAMOUS EPITHELIALS RARE /HPF Quantitative HCG Result Value Ref Range HCG QUANTITATIVE 539 MIU/ML BLOOD TYPING, ABO AND RH Result Value Ref Range ABO/RH B POSITIVE IMAGING STUDIES US OB TRANSVAG Final Result by User, [id number] (09/15 1316) [address] [address] IMAGING STUDIES: US OB TRANSVAG DATE: 09/15/2025 11:52 AM HISTORY: 20-year-old female. Patient reports 4 week gestation. She reports having an ultrasound to confirm and a gestational sac was reportedly visualized. Light vaginal spotting today. LMP 06/20/2025. Irregular menstrual cycles. Reported history of polycystic ovarian syndrome. Beta-hCG 539 at 1059 hours today. COMPARISON: CT abdomen pelvis with contrast 11/06/2023. DISCUSSION: Endovaginal pelvic ultrasound. Static and cine images acquired. Anteverted uterus is 8.9 x 4.8 x 6.7 cm. Endometrial thickness of 11 mm. Anechoic area within the endometrium is 4.8 x 3.9 x 3.4 mm (intracavitary fluid). Right ovary 5.4 x 3.9 x 4.4 cm. Within the right ovary is an anechoic 4.6 x 3.3 x 3 cm cyst. Color Doppler and pulse Doppler imaging of the right ovary is normal limits. Left ovary 3.1 x 1.8 x 2.7 cm. Multiple left ovarian follicles. Color Doppler and pulse Doppler imaging performed of the left ovary. IMPRESSION: 1. Thickened endometrium of 11 mm. 4.8 x 3.9 x 3.4 mm anechoic area within the endometrium (intracavitary fluid) is possibly a gestational sac. 2. Right ovarian 4.6 cm maximal dimension simple cyst. Multiple left ovarian follicles. No appreciable ectopic . 3. Correlate with clinical exam and consider serial hCG and follow-up ultrasound if clinically dictated. Ordered By: MARIAA GUERRA Interpreted By: Jerry Chavez, 09/15/2025 12:58 PM ED Course / Medical Decision Making MDM Number of Diagnoses or Management Options Vaginal bleeding in (HHS/HCC) Diagnosis management comments: Unable to view ultrasound from outside record and will obtain ultrasound in emergency room. Also obtaining laboratory blood testing with typing for need for RhoGAM. Evaluation of anemia as result of hemorrhage. Metabolic dysfunction. Will also perform pelvic exam at later point. After receiving results of ultrasound showing that there is a sac development in the uterus pelvic exam will be deferred to ensure no disturbance if this is a threatened miscarriage. Amount and/or Complexity of Data Reviewed Clinical lab tests: reviewed Tests in the radiology section of CPT??: reviewed Decide to obtain previous medical records or to obtain history from someone other than the patient:yes ED Course as of 09/15/25 1344 Wed Sep 15, 2025 1112 CBC W/DIFF AUTOMATED(!) Slightly anemic. Similar to historical values. No signs of severe infection. [DC] 1128 URINALYSIS(!) No signs of urinary tract infection. Small amount of blood can be expected with patient spotting. [DC] 1128 BASIC METABOLIC PANEL(!) No signs of renal impairment or metabolic derangement. [DC] 1140 ABO/RH: B POSITIVE Patient does not require RhoGAM [DC] 1141 HCG QUANTITATIVE: 539 This is similar to results of her quant she had most recently. [DC] 1332 US OB TRANSVAG Per rad- IMPRESSION: 1. Thickened endometrium of 11 mm. 4.8 x 3.9 x 3.4 mm anechoic area within the endometrium (intracavitary fluid) is possibly a gestational sac. 2. Right ovarian 4.6 cm maximal dimension simple cyst. Multiple left ovarian follicles. No appreciable ectopic . 3. Correlate with clinical exam and consider serial hCG and follow-up ultrasound if clinically dictated. [DC] 1342 In for reevaluation. Patient respirations easy skin within normal limits no apparent distress.Discussed all testing results. Patient verbalized understanding. Discussed discharge planning. Patient involved in shared decision making. Agreeable to close follow-up with [facility]ATH MACHINE TENDER. Says that she has appointment on the , but will contact them for repeat quant or ultrasound or evaluation if they deem necessary. Patient also verbalized an understanding of when to return to the emergency room such as heavier bleeding or severe abdominal pain. Patient ambulatory steady gait and stable for discharge. [DC] ED Course User Index [DC] Mariaa Guerra APRN Medications - No data to display Clinical Impression Vaginal bleeding in (HHS/HCC) (Primary) Current Discharge Medication List Disposition: Discharge [facility]: [facility] [address] [facility] Call for follow-up appointment within the next week or 2, earlier if you cannot get into see your WREATH MACHINE TENDER. [address] [address] Call Contact today for follow-up appointment for reevaluation vaginal bleeding in MARIAA GUERRA APRN 09/15/2025 Mariaa Guerra APRN 09/15/25 1344 Cosigned by Sixto Kurtz MD at 09/16/2025 5:58 AM CDT * Cecilia Orozco RN - 09/15/2025 10:27 AM CDT Pt to ED c/o vaginal bleeding. Pt states she is 4 weeks . Had a US to confirm , seen gestational sac, but unknown ARMEN, last menstrual cycle 06/20/25. Went to [facility]. No abdominal pain, no discharge, no urinary symptoms. First , A&Ox4, no pain documented in this encounter Plan of Treatment Not on file documented as of this encounter Procedures Procedure Name Priority Date/Time Associated Diagnosis Comments US OB TRANSVAG STAT 09/15/2025 12:27 PM CDT HC URINALYSIS AUTO W/O MICRO STAT 09/15/2025 11:08 AM CDT BASIC METABOLIC PANEL STAT 09/15/2025 10:59 AM CDT HC HCG QN STAT 09/15/2025 10:59 AM CDT HC BLOOD TYPING ABO STAT 09/15/2025 1 0:59 AM CDT CBC W/DIFF AUTOMATED STAT 09/15/2025 10:59 AM CDT documented in this encounter Results * US OB TRANSVAG (09/15/2025 12:27 PM CDT) Anatomical Region Laterality Modality Abdomen, Pelvis Ultrasound 09/15/2025 12:5 8 PM CDT Impressions 09/15/2025 1:14 PM CDT IMPRESSION: 1. Thickened endometrium of 11 mm. 4.8 x 3.9 x 3.4 mm anechoic area within the endometrium (intracavitary fluid) is possibly a gestational sac. 2. Right ovarian 4.6 cm maximal dimension simple cyst. Multiple left ovarian follicles. No appreciable ectopic . 3. Correlate with clinical exam and consider serial hCG and follow-up ultrasound if clinically dictated. Ordered By: MARIAA GUERRA Interpreted By: Jerry Chavez, 09/15/2025 12:58 PM Narrative 09/15/2025 1:14 PM CDT [address] [address] IMAGING STUDIES: US OB TRANSVAG DATE: 09/15/2025 11:52 AM HISTORY: 20-year-old female. Patient reports 4 week gestation. She reports having an ultrasound to confirm and a gestational sac was reportedly visualized. Light vaginal spotting today. LMP 06/20/2025. Irregular menstrual cycles. Reported history of polycystic ovarian syndrome. Beta-hCG 539 at 1059 hours today. COMPARISON: CT abdomen pelvis with contrast 11/06/2023. DISCUSSION: Endovaginal pelvic ultrasound. Static and cine images acquired. Anteverted uterus is 8.9 x 4.8 x 6.7 cm. Endometrial thickness of 11 mm. Anechoic area within the endometrium is 4.8 x 3.9 x 3.4 mm (intracavitary fluid). Right ovary 5.4 x 3.9 x 4.4 cm. Within the right ovary is an anechoic 4.6 x 3.3 x 3 cm cyst. Color Doppler and pulse Doppler imaging of the right ovary is normal limits. Left ovary 3.1 x 1.8 x 2.7 cm. Multiple left ovarian follicles. Color Doppler and pulse Doppler imaging performed of the left ovary. Procedure Note Jerry Chavez MD - 09/15/2025 [facility] [address] [place], [place] [address] IMAGING STUDIES: US OB TRANSVAGDATE: 09/15/2025 11:52AM HISTORY: 20-year-old female. Patient reports 4 week gestation. Shereports having an ultrasound to confirm and a gestational sacwas reportedly visualized. Light vaginal spotting today. LMP 06/20/2025.Irregular menstrual cycles. Reported history of polycystic ovariansyndrome. Beta-hCG 539 at 1059 hours today. COMPARISON: CT abdomen pelvis with contrast 11/06/2023. DISCUSSION: Endovaginal pelvic ultrasound. Static and cine images acquired. Anteverted uterus is 8.9 x 4.8 x 6.7 cm. Endometrial thickness of 11 mm.Anechoic area within the endometrium is 4.8 x 3.9 x 3.4 mm (intracavitaryfluid). Right ovary 5.4 x 3.9 x 4.4 cm. Within the right ovary is an anechoic 4.6x 3.3 x 3 cm cyst. Color Doppler and pulse Doppler imaging of the rightovary is normal limits. Left ovary 3.1 x 1.8 x 2.7 cm. Multiple left ovarian follicles. ColorDoppler and pulse Doppler imaging performed of the left ovary. IMPRESSION: 1. Thickened endometrium of 11 mm. 4.8 x 3.9 x 3.4 mm anechoic areawithin the endometrium (intracavitary fluid) is possibly a gestationalsac. 2. Right ovarian 4.6 cm maximal dimension simple cyst. Multiple leftovarian follicles. No appreciable ectopic . 3. Correlate with clinical exam and consider serial hCG and follow-upultrasound if clinically dictated. Ordered By: MARIAA GUERRA Interpreted By: Jerry Chavez, 09/15/2025 12:58 PM Mariaa Guerra REAL ESTATE BRANCH MANAGER ULTRASOUND Final Result * (ABNORMAL) URINALYSIS (09/15/2025 11:08 AM CDT) SPECIMEN TYPE URINE CLEAN CATCH 09/15/2025 11:13 AM CDT [facility] COLOR (U) COLORLESS 09/15/2025 11:26 AM CDT [facility] TRANSPARENCY CLEAR 09/15/2025 11:26 AM CDT [facility] SPECIFIC GRAVITY (U) 1.004 1.001 - 1.030 09/15/2025 11:26 AM CDT [facility] U PH 6.5 5.0 - 9.0 09/15/2025 11:26 AM CDT [facility] LEUKOCYTES (U) 25(A) NEGATIVE 09/15/2025 11:26 AM CDT [facility] NITRITES NEGATIVE NEGATIVE 09/15/2025 11:26 AM CDT [facility] PROTEIN RANDOM (U) NEGATIVE <30 MG/DL 09/15/2025 11:26 AM CDT [facility] GLUCOSE (U) NORMAL NORMAL MG/DL 09/15/2025 11:26 AM CDT [facility] KETONES MG/DL (U) NEGATIVE NEGATIVE MG/DL 09/15/2025 11:26 AM CDT [facility] UROBILINOGEN NORMAL NORMAL MG/DL 09/15/2025 11:26 AM CDT [facility] BILIRUBIN (U) NEGATIVE NEGATIVE MG/DL 09/15/2025 11:26 AM CDT [facility] BLOOD (U) 2+(A) NEGATIVE 09/15/2025 11:26 AM CDT [facility] MUCUS RARE /LPF 09/15/2025 11:26 AM T [facility] WBC/HPF 1 <6 /HPF 09/15/2025 11:26 AM CDT [facility] RBC/HPF <1 <6 /HPF 09/15/2025 11:26 AM CDT [facility] SQUAMOUS EPITHELIALS RARE /HPF 09/15/2025 11:26 AM T [facility] URINE SPECIMEN OBTAINED BY CLEAN CATCH PROCEDURE / Unknown 09/15/2025 11:08 AM CDT us Mariaa Guerra REAL ESTATE BRANCH MANAGER URINE ORDERABLES Final Resul t [facility] [address] [place] [address], * BLOOD TYPING, ABO AND RH (09/15/2025 10:59 AM CDT) ABO/RH B POSITIVE 09/15/2025 11:40 AM CDT [facility] 09/15/2025 10:5 9 AM CDT Mariaa Guerra APRN BLOOD BANK TEST ORDERABLES F inal Result [facility] [address] [place] [address], * Quantitative HCG (09/15/2025 10:59 AM CDT) [facility] HCG QUANTITATIVE 539 MIU/ML 09/15/20 11:30 AM CDT [facility] Comment: WEEKS OF REFERENCE RANGES Non- female < or = 2 0.2 - 1 5 - 50 1 - 2 50 - 500 2 - 3 100 - 5000 3 - 4 500 - 10,000 4 - 5 1000 - 50,000 5 - 6 10,000 - 100,000 6 - 8 15,000 - 200,000 2 - 3 MONTHS 10,000 - 100,000 09/15/2025 10:5 9 AM CDT Mariaa Guerra APRN LABORATORY Final Result [facility] [address] [place] [address], * (ABNORMAL) BASIC METABOLIC PANEL (09/15/2025 10:59 AM CDT) Pathologist [facility] GLUCOSE 96 70 - 99 MG/DL 09/15/2025 11:22 AM CDT [facility] BUN 7 7 - 18 MG/DL 09/15/2025 11:22 AM CDT [facility] CREATININE S/P/B 0.46(L) 0.55 - 1.02 MG/DL 09/15/2025 11:22 AM CDT [facility] SODIUM S/P/B 139 136 - 145 MMOL/L 09/15/2025 11:22 AM CDT [facility] POTASSIUM S/P/B 4.0 3.5 - 5.1 MMOL/L 09/15/2025 11:22 AM CDT [facility] CHLORIDE S/P/B 109 97 - 115 MMOL/L 09/15/2025 11:22 AM CDT [facility] CO2 25.0 21 - 32 MMOL/L 09/15/2025 11:22 AM T [facility] CALCIUM S/P/B 9.3 8.5 - 10.1 MG/DL 09/15/2025 11:22 AM CDT [facility] ANION GAP 5.0 2 - 10 MMOL/L 09/15/2025 11:22 AM T [facility] BUN CREATININE RATIO 15.1 6 - 26 09/15/2025 11:22 AM T [facility] GFR ESTIMATE >90 >90 ML/MIN/1.7 3 M2 09/15/2025 11:22 AM T [facility] Comment: NOTE: eGFR is not calculated for patients <18 years of age or gender unknown. This is an estimated GFR calculation using the new CKD EPI creatinine equation without race and so does not require a correction factor for race. This estimated GFR should not be used for calculating drug doses. 09/15/2025 10:5 9 AM CDT Mariaa Guerra APRN LABORATORY Final Result [facility] [address] [place] [address], [place] [phone] * (ABNORMAL) CBC W/DIFF AUTOMATED (09/15/2025 10:59 AM CDT) WBC 4.94 4.5 - 11.0 x10'3/uL 09/15/2025 11:10 AM CDT [facility] RBC 4.00(L) 4.20 - 5.40 x10'6/uL 09/15/2025 11:10 AM CDT [facility] HGB 11.5(L) 12.0 - 16.0 G/DL 09/15/2025 11:10 AM CDT [facility] HCT 33.8(L) 38.0 - 48.0 % 09/15/2025 11:10 AM CDT [facility] MCV 84.5 81.0 - 99.0 FL 09/15/2025 11:10 AM CDT [facility] MCH 28.8 27.0 - 31.0 PG 09/15/2025 11:10 AM CDT [facility] MCHC 34.0 32.0 - 36.0 G/DL 09/15/2025 11:10 AM CDT [facility] RDW 12.5 11.5 - 14.5 % 09/15/2025 11:10 AM CDT [facility] PLT 182 130 - 400 x10'3/uL 09/15/2025 11:10 AM CDT [facility] MPV 12.1 9.3 - 12.2 FL 09/15/2025 11:10 AM CDT [facility] DIFFERENTIAL TYPE AUTOMATED DIFFERENTIAL 09/15/2025 11:10 AM CDT [facility] NEUTROPHILS % 54.0 % 09/15/2025 11:10 AM CDT [facility] LYMPHOCYTES % 34.2 % 09/15/2025 11:10 AM CDT [facility] MONOCYTES % 6.1 % 09/15/2025 11:10 AM CDT [facility] EOSINOPHILS 4.7 % 09/15/2025 11:10 AM CDT [facility] BASOPHILS 0.8 % 09/15/2025 11:10 AM CDT [facility] IMMATURE GRANS % 0.2 % 09/15/20 11:10 AM CDT [facility] ABS. NEUTROPHILS 2.67 1.80 - 7.70 x10'3/uL 09/15/2025 11:10 AM CDT [facility] ABS. LYMPHOCYTES 1.69 1.00 - 4.80 x10'3/uL 09/15/2025 11:10 AM CDT [facility] ABS. MONOCYTES 0.30 0.24 - 0.86 x10'3/uL 09/15/2025 11:10 AM CDT [facility] ABS. EOSINOPHILS 0.23 0.04 - 0.36 x10'3/uL 09/15/2025 11:10 AM CDT [facility] ABS. BASOPHILS 0.04 0.01 - 0.08 x10'3/uL 09/15/2025 11:10 AM CDT [facility] ABS. IMMATURE GRANULOCYTES 0.01 0.00 - 0.49 x10'3/uL 09/15/2025 11:10 AM CDT [facility] 09/15/2025 10:5 9 AM CDT Mariaa Guerra APRN LABORATORY Final Result [facility] [address] [place] [address], documented in this encounter Visit Diagnoses Diagnosis Vaginal bleeding in (HHS/HCC)- Primary Unspecified antepartum hemorrhage, unspecified as to episode of care documented in this encounter Additional Health Concerns Assessment Noted Time PHQ-9 Depression Total Score: 0 07/22/20 24 2:15 PM CDT documented as of this encounter Care Teams Illuminating Engineer Relationship Specialty Start Date End Date T[place] [address] PCP - General NURSE PRACTITIONER 08/10/19 documented as of this encounter
--- NOTE | 2025-09-16 09:26 | PC.NURSE ---
pt told this RN her OB called and would like her seen at [facility]. pt ambulated to the door with a steady gait in NAD
--- OUTSIDE RECORDS SUMMARY | 2025-09-16 09:44 | XMS_ITS | Clinical Summary ---
Author Organization [facility] Address [address] [place] [address] Care Team Providers Care Event Attendant Name Role Phone Tia Corley JANETH-BSS SOLUTION ARCHITECT Primary Care Provider [phone] Source Comments [facility],non-owned Affiliates and Associated Physician Practices is amultiple site organization consisting of ambulatory clinics and hospital sitesin [place], [place], [place] and [place]. This disclosure is being madepursuant to the Care Everywhere program and may not contain all information available regarding this patient. Last updated 18.[facility] Allergies Active Allergy Reactions Criticality Noted Date Comments Amphetamine-Dextroamphetamine Nausea and/or Vomiting 11/13/2020 Amoxicillin Itching 11/13/2020 Medications * Be aware that medications may not be up to date on this document. Alwaysverify current medications with the patient. beclomethasone dipropionate (QVAR) 40 MCG/ACT inhaler Inhale 2 puffs by mouth 2 times daily Active albuterol HFA (PROVENTIL;VENTOL IN;PROAIR) 108 (90 BASE) MCG/ACT inhaler Inhale 2 puffs by mouth every 6 hours as needed Active FLUoxetine (PROZAC) 20 MG capsule Take 20 mg by mouth once daily Active amphetamine-dextr oamphetamine XR 24hr (ADDERALL XR) 20 MG capsule Take 20 mg by mouth every morning Active Amphet-Dextroamph et 3-Bead ER (MYDAYIS) 37.5 MG CP24 Active desogestrel-ethin yl estradiol (ORTHO-CEPT; DESOGEN; APRI; SOLIA; RECLIPSEN) 0.15-30 MG-MCG tablet Take 1 tablet by mouth once daily Active oxyCODONE, immediate release, (ROXICODONE) 5 MG tablet Take 1 tablet by mouth every 4 hours as needed for Pain 12 tablet 0 Active Social History Tobacco Use Types Packs/Day Years Used Date Smoking Tobacco: Never Smokeless Tobacco: Never Alcohol Use Standard Drinks/Week Comments Never 0 (1 standard drink = 0.6 oz pur e alcohol) AUDIT-C Answer Date Recorded Q1: How often do you have a drink containing alc ohol? Never 11/13/2020 Average Number of Drinks Not on file 020 Frequency of Binge Drinking Not on file 11/01 Comments No Sex and Gender Information Value Date Recorded Sex Assigned at Not on file Legal Sex Female 8:26 AM MUSIC JOURNALIST Gender Identity Not on file Sexual Orientation Not on file Last Filed Vital Signs Vital Sign Reading Time Taken Comments Blood Pressure 123/77 11/13/2020 3:30 PM MUSIC JOURNALIST Pulse 89 11/13/2020 3:30 PM MUSIC JOURNALIST Temperature 36.9 C (98.4 F) 11/13/2020 9:05 AM MUSIC JOURNALIST Respiratory Rate 11 11/13/2020 3:30 PM MUSIC JOURNALIST Oxygen Saturation 98% 11/13/2020 3:30 PM MUSIC JOURNALIST Inhaled Oxygen Concentration - - Weight 83.8 kg (184 lb 11.9 oz) 11/22/2020 1:51 PM MUSIC JOURNALIST Height 168 cm (5' 6.14) 01/16/2018 10: 07 AM MUSIC JOURNALIST Body Mass Index - - Plan of Treatment Health Maintenance Due Date Last Done Comments HIV SCREENING 2018 HPV VACCINE (1 - 3-dose series) 2018 CHLAMYDIA/GONORRHEA SCREENING 2019 MENINGOCOCCAL (Group B) VACCINE SHARED DECISION-MAKING (1 of 2 - Standard) 2019 HEPATITIS C SCREENING 08/22/2021 DTAP/TDAP/TD VACCINES (1 - Tdap) 2022 HEPATITIS B VACCINE (1 of 3 - 19+ 3-dose series) 2022 DEPRESSION SCREENING 12/02/2024 COVID-19 VACCINE (1 - season) 2025 INFLUENZA VACCINE (#1) 2025 0, 10/16/2016, 08/23/2014, Additional history exists ZOSTER VACCINE (1 of 2) 2053 HIB VACCINE Aged Out No longer eligi ble based on patient's age to complete this topic MENINGOCOCCAL GROUPS A/C/Y/W VACCINE Aged Out No longer eligible based on patient's age to complete this topic PNEUMOCOCCAL VACCINE Aged Out No long er eligible based on patient's age to complete this topic Insurance [employer] MEDICAID - [place] Care Teams Event Attendant Relationship Specialty Start Date End Date Tia Cor[place] [address] PCP - General Allergy and Immunology 12/27/17
--- OUTSIDE RECORDS SUMMARY | 2025-09-16 09:44 | XMS_ITS | Patient Health Record ---
Author Organization [facility] Address [address] [place] [address] Care Team Providers Care Manager Of Internal Audit Name Role Phone Priya Burton Primary Care Provider [place], [facility] Unavailable U navailable Allergies Allergen (clinical drug ingredient) Drug/Non Drug Allergy documented on EMR Reaction Allergy Type Onset Date Status amphetamine aspartate / amphetamine sulfate / dextroamphetamine saccharate / dextroamphetamine sulfate Adderall Unknown Drug Allergy Ac tive Penicillin G Benzathine Unknown Drug Allergy Active Reason For Referral No Information Medications Medication SIG (Take, Route, Frequency, Duration) Notes Start Date End Date Status hydrOXYzine HCl 10 MG 1 tablet as needed Orally three times daily; Duration: 30 days Active Mydayis 37.5 MG 1 capsule in the mor salma Orally Once a day; Duration: 30 days 01/09/2024 Active Mydayis 37.5 MG 1 capsule in the mor salma Orally Once a day; Duration: 30 days 02/04/2024 Active PROzac 20 MG two capsules Orally Once a day; Duration: 30 day(s) Active ProAir HFA 108 (90 Base) MCG/ACT 2 puffs as needed Inhalation every 4 hrs Active Mydayis 37.5 MG 1 capsule in the mor salma Orally Once a day; Duration: 30 days 03/04/2024 Active Social History Sex Assigned At : Social History Observation Description Sex Assigned At Female Problems Problem Type SNOMED Code ICD Code Onset Dates Problem Status W/U Status Risk Notes Problem Attention deficit hyperactivity disorder (697849608) Attention-deficit hyperactivity disorder, predominantly hyperactive type (F90.1) Active confirmed Problem Fatigue (57677784) Other fatigue (R53.83) Active confirmed Problem Anxiety (71247996) Anxiety (F41.9) Active confirmed Plan Of Treatment Future Test Test Name Order Date Iron, Serum* 02/06/2021 Vitamin B12* 02/06/2021 CBC With Differential/Platelet* 02/07/20 21 Vitamin D, 25-Hydroxy* 02/06/2021 [id number] 02/06/2021 Lipid Panel* 02/06/2021 TSH Rfx on Abnormal to Free T4 1 Insurance Providers Payer Name Payer Address Payer Phone Subscriber Number Group Number Insured Name Patient Relationship to Insured Coverage Start Date Coverage End Date [employer] [address] [place] [address] [phone] [id number] Priscilla Olson Self - patient is the insured 6 MEDICAID [address] [place] [address] [id number] RamirezPriscilla gay Self - patient is the insured 6 Medical (General) History Medical History History ICD Code Asthma Surgical History Surgery Date(Month/Year) tonsillectomy 2006 Cyst removal 2020 Hospitalization History Reason Date(Month/Year) [facility] - eardrum rupture, b one infection 05/2016 [facility] - bacterial infectio n in colon 2012
--- OUTSIDE RECORDS SUMMARY | 2025-09-16 09:44 | XMS_ITS | Clinical Summary ---
Author Organization [facility] Address [address] [place] [id number] Care Team Providers Care It Infrastructure Specialist Name Role Phone Unavailable Primary Care Provider Unavailabl e Social History Tobacco Use Types Packs/Day Years Used Date Smoking Tobacco: Never Assessed Comments Unknown Sex and Gender Information Value Date Recorded Sex Assigned at Not on file Legal Sex Female 11:22 AM PATENT PARALEGAL Gender Identity Not on file Sexual Orientation Not on file Plan of Treatment Health Maintenance Due Date Last Done Comments Hepatitis C Virus (HCV) Screening 2003 Meningococcal B Immunization (1 of 2 - Standard) 2019 Influenza Immunization (#1) 08/02/202508/03, 10/16/2016, 08/23/2014, Additional history exists SARS-COV-2 Immunization ( - season) 2025 Respiratory Syncytial Virus (RSV) Immunization (Adult) (1 - 1-dose 75+ series) 2078 Hepatitis B Immunization Completed 004, 2003, 2003 Pneumococcal Immunization Combined Aged Out 11/28/2004, 03/06/2004, 2003, Additional history exists No longer eligible based on patient's age to complete this topic Hepatitis A Immunization Discontinued 02/25/2006, 08/03 Measles Mumps Rubella (MMR) Immunization Discontinued 07/13/2008, 11/28/2004 Polio (IPV) Immunization Discontinued 008, 03/06/2004, 2003, Additional history exists Varicella Immunization Discontinued 02/14/2009, 2003 Human Papillomavirus (HPV) Immunization Completed 12/27/2014, 08/23/2014, 06/21/2014 DTaP/Tdap/Td Immunization Discontinued 2014, 07/13/2008, 11/28/2004, Additional history exists Meningococcal Immunization (ACWY) Aged Out 06/27/2015 No longer eligible based on patient's age to complete this topic TdaP Immunization Completed 06/27/2015 Rotavirus Immunization Aged Out No lo nger eligible based on patient's age to complete this topic
--- OUTSIDE RECORDS SUMMARY | 2025-09-16 10:03 | XMS_ITS | Encounter Summary ---
Author Organization [facility] Address [address] [place] [address] Care Team Providers Care Specimen Technician Name Role Phone Tia Corley ARSENIO Primary Care Provider [phone] Reason for Visit * Reason Comments Vaginal Bleeding Encounter Details Date Type Department Care Team (Late st Contact Info) Description 09/16/2025 10:03 AM CDT Emergency [facility] [place] [address] Sue Cortez, CAROL [address] [place], [place] [id number] Vaginal Bleeding Social History Tobacco Use Types Packs/Day Years [...] Sign Reading Time Taken Comments Blood Pressure 110/97 09/16/2025 10:11 AM CDT Pulse 106 09/16/2025 10:11 AM CDT Temperature 36.8 C (98.3 F) 09/16/2025 10:11 AM CDT Respiratory Rate 18 09/16/2025 10:11 AM CDT Oxygen Saturation 99% 09/16/2025 10:11 AM CDT Inhaled Oxygen Concentration - - Weight 93.1 kg (205 lb 4 oz) 09/16/2025 10:11 AM CDT Height 172.7 cm (5' 8) 09/16/2025 10:11 AM CDT Body Mass Index 31.21 09/16/2025 10:11 AM CDT documented in this encounter Functional Status * Calculated C-SSRS Risk Score (Lifetime/Recent) Answer Date of Assessment Author Status No Risk Indicated 09/16/2025 10:17 AM CDT Kathryn Hurd RN Active * [place] Suicide Severity Rating Scale (Screener/Recent Self-Report) Question Answer Date of Assessment Author Status 1. Wish to be (Past 1 Month) No 09/16/2025 10:17 AM CDT Kathryn Hurd RN Activ e 2. Non-Specific Active Suicidal Thoughts (Past 1 Month) No 09/16/2025 10:17 AM CDT Kathryn Hurd RN Activ e 6. Suicidal Behavior (Lifetime) No 09/16/2025 10:17 AM CDT Kathryn Hurd RN Activ e documented as of this encounter ED Notes * Kathryn Hurd RN - 09/16/2025 10:15 AM CDT To triage with co vaginal bleeding. Was seen in the ED yesterday for same issue. States this AM woke up with increased abdominal pain and cramping. Also increased bleeding. documented in this encounter Plan of Treatment Scheduled Orders Name Type Priority Associated Diagnoses Orde r Schedule CBC W/DIFF AUTOMATED Lab STAT Once for 1 Occurrences starting 09/16/2025 until 09/16/2025 BASIC METABOLIC PANEL Lab STAT Onc e for 1 Occurrences starting 09/16/2025 until 09/16/2025 BLOOD TYPING, ABO AND RH Blood Bank STAT Once for 1 Occurrences starting 09/16/2025 until 09/16/2025 URINALYSIS Lab Routine STAT for 1 Occurrences starting 09/16/2025 until 09/16/2025 HCG QUANTITATIVE SERUM Lab Routine ST AT for 1 Occurrences starting 09/16/2025 until 09/16/2025 documented as of this encounter Visit Diagnoses Not on filedocumented in this encounter Administered Medications Active Administered Medications - up to 3 most recent administrations Medication Order MAR Action Action Date Dose Rate Site dextrose 5 % lactated ringers infusion at 75 mL/hr, Intravenous, Once, 1 dose, On Polly 09/16/25 at 1030 metoclopramide (REGLAN) injection 10 mg 10 mg, Intravenous, Once, 1 dose, On Polly 09/16/25 at 1030, Administer IV over 1-2 minutes documented in this encounter Additional Health Concerns Assessment Noted Time PHQ-9 Depression Total Score: 0 07/22/20 24 2:15 PM CDT documented as of this encounter Care Teams Specimen Technician Relationship Specialty Start Date End Date [place] [address] PCP - General NURSE PRACTITIONER 08/10/19 documented as of this encounter
--- OUTSIDE RECORDS SUMMARY | 2025-09-16 10:21 | XMS_ITS | Encounter Summary ---
Author Organization [facility] Address [address] [place] [address] Care Team Providers Care Senior Major Gifts Officer Name Role Phone Tia Corley ARSENIO Primary Care Provider [phone] Encounter Details Date Type Department Care Team (Latest Contact Info) Description 09/16/2025 Travel Social History Tobacco Use Types Packs/Day Years [...] on file documented as of this encounter Functional Status * Calculated C-SSRS Risk Score (Lifetime/Recent) Answer Date of Assessment Author Status No Risk Indicated 09/16/2025 10:17 AM Kathryn Yoder RN Active * [place] Suicide Severity Rating Scale (Screener/Recent Self-Report) Question Answer Date of Assessment Author Status 1. Wish to be (Past 1 Month) No 09/16/2025 10:17 AM Kathryn Yoder RN Activ e 2. Non-Specific Active Suicidal Thoughts (Past 1 Month) No 09/16/2025 10:17 AM CDT Kathryn Hurd RN Activ e 6. Suicidal Behavior (Lifetime) No 09/16/2025 10:17 AM CDT Kathryn Hurd RN Activ e documented as of this encounter Plan of Treatment Not on file documented as of this encounter Visit Diagnoses Not on filedocumented in this encounter Additional Health Concerns Assessment Noted Time PHQ-9 Depression Total Score: 0 07/22/20 24 2:15 PM CDT documented as of this encounter Care Teams Senior Major Gifts Officer Relationship Specialty Start Date End Date T[place] [address] PCP - General NURSE PRACTITIONER 08/10/19 documented as of this encounter
--- OUTSIDE RECORDS SUMMARY | 2025-09-16 10:21 | XMS_ITS | Clinical Summary ---
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 NEGATIVE [facility] Internal Control: VALID VALID [facility] URINE SPECIMEN FROM URETHRA / Unknown 06/25/2025 1:23 PM CDT Tia Corley NP URINE ORDERABLES Final Result Performing Organization Address [facility] de Phone Number [facility] [address] [place] [address], [place] [phone] * URINE BACTERIA CULTURE (06/23/2025 3:12 PM CDT) SPEC DESCRIPTION URINE CLEAN CATCH 06/23/2025 7:09 PM CDT [facility] SPECIAL REQUESTS NO SPECIAL REQUEST 06/23/2025 7:09 PM CDT [facility] CULTURE RESULT FEW CONTAMINANTS 06/02 10:34 AM CDT [facility] URINE SPECIMEN OBTAINED BY CLEAN CATCH PROCEDURE / Unknown 06/23/2025 3:12 PM CDT 06/24/2025 2:22 PM CDT us Tia Corley NP MICROBIOLOGY - GENERAL ORDERABL ES Final Result Performing Organization Address City/[facility]/ZIP Co de Phone Number [facility] [address] [place] [address], [place] [phone] * (ABNORMAL) URINALYSIS AUTO DIP (06/23/2025 3:09 PM CDT) COLOR (U) YELLOW YELLOW [facility] [place] [facility] [place] GLUCOSE (U) NEGATIVE NEGATIVE MG/DL [facility] [place] BILIRUBIN (U) NEGATIVE NEGATIVE [facility] WIG [facility] [place] KETONES MG/DL (U) 15 (SMALL 1+)(A) NEGATIVE MG/DL [facility] [place] SPECIFIC GRAVITY (U) 1.025 1.001 - 1.035 [facility] [place] BLOOD (U) NEGATIVE NEGATIVE [facility] [place] U PH 7.0 5.0 - 9.0 [facility] [place] PROTEIN (U) 1+ (30)(A) NEGATIVE mg/dL [facility] [place] UROBILINOGEN 1.0 0.2 - 1.0 EU/dL = mg/dL [facility] [place] NITRITES NEGATIVE NEGATIVE MG/DL [facility] [place] LEUKOCYTES (U) 2+ (MODERATE)(A ) NEGATIVE [facility] [place] URINE SPECIMEN OBTAINED BY CLEAN CATCH PROCEDURE / Unknown 06/23/2025 3:09 PM CDT Tia Corley NP URINE ORDERABLES Final Result Performing Organization Address City/[facility] Co de Phone Number [facility] [place] [place] [address] [place] [address], [place] [phone] * BACTERIAL VAGINOSIS PCR (06/23/2025 2:57 PM CDT) SPEC DESCRIPTION VAGINAL SWAB 2024 3:16 PM CDT [facility] BACTERIAL VAGINITIS NEGATIVE NEGATIVE 06/29/2025 10:29 AM CDT [facility] Comment:PERFORMED BY NUCLEIC ACID AMPLIFICATION VAGINAL STRUCTURE / Unknown 06/23/2025 2:57 PM CDT Tia Corley NP MICROBIOLOGY - GENERAL ORDERABL ES Final Result [facility] [address] [place] [address], * CHLAMYDIA GC RNA (07/22/2024 3:03 PM CDT) SPEC DESCRIPTION uvoid 07/22/20 24 3:20 PM CDT [facility] CHLAMYDIA RNA TMA NEGATIVE NEGATIVE 024 11:27 PM CDT [facility] Comment:PERFORMED BY NUCLEIC ACID AMPLIFICATION N.GONORRHOEAE RNA TMA NEGATIVE NEGATIVE 07/23/2024 11:27 PM CDT [facility] Comment:PERFORMED BY NUCLEIC ACID AMPLIFICATION URINE SPECIMEN / Unknown 07/22/2024 3:03 PM CDT us Tia Corley NP MICROBIOLOGY - GENERAL ORDERABL ES Final Result Performing Organization Address [facility] Co de Phone Number [facility] [address] [place] [address], [facility] [address] [place] [address], from Last 3 Months or Most Recently Relevant to Health Maintenance Insurance [employer] OPEN ACCESS [facility] [employer] OPEN ACCESS [facility] Care Teams Loop Drier Operator Relationship Specialty Start Date End Date Tia Corley [place] [address] [place] [address] PCP - General NURSE PRACTITIONER 08/10/19
--- OUTSIDE RECORDS SUMMARY | 2025-09-16 10:21 | XMS_ITS | Encounter Summary ---
Author Organization [facility] Address [address] [place] [address] Care Team Providers Care Electronic Imager Name Role Phone Tia Corley ARSENIO Primary Care Provider Encounter Details Date Type Department Care Team (Latest Contact Info) Description 09/15/2025 Travel Social History Tobacco Use Types Packs/Day [...] Status No Risk Indicated 09/15/2025 10:30 AM Lorne Davies RN Active * [place] Suicide Severity Rating Scale (Screener/Recent Self-Report) Question Answer Date of Assessment Author Status 1. Wish to be (Past 1 Month) No 09/15/2025 10:30 AM Cecilia Davies RN Ac tive 2. Non-Specific Active Suicidal Thoughts (Past 1 Month) No 09/15/2025 10:30 AM CDT Cecilia Orozco RN Ac tive 6. Suicidal Behavior (Lifetime) No 09/15/2025 10:30 AM CDT Cecilia Orozco RN Ac tive documented as of this encounter Plan of Treatment Not on file documented as of this encounter Visit Diagnoses Not on filedocumented in this encounter Additional Health Concerns Assessment Noted Time PHQ-9 Depression Total Score: 0 07/22/20 24 2:15 PM CDT documented as of this encounter Care Teams Electronic Imager Relationship Specialty Start Date End Date Tia Corley NP [address] [place] [address] PCP - General NURSE PRACTITIONER 08/10/19 documented as of this encounter
--- OUTSIDE RECORDS SUMMARY | 2025-09-16 10:22 | XMS_ITS | Encounter Summary ---
Author Organization [facility] Address [address] [place] [address] Care Team Providers Care Cut Out Stitcher Name Role Phone Tia Corley NP Primary Care Provider [phone] Encounter Details Date Type Department Care Team (Late st Contact Info) Description 05/29/2023 [employer] Message [facility] [employer] [address] [place] [address] [employer], [facility] Provider Air Quality Message Social History Tobacco Use Types Packs/Day Years Used Date Smoking Tobacco: Never Smokeless Tobacco: Never Alcohol Use Standard Drinks/Week Comments No 0 (1 standard drink = 0.6 oz pur e alcohol) AUDIT-C Answer Date Recorded Frequency of Alcohol Consumption Never 01/19/2019 Average Number of Drinks Not on file 019 Frequency of Binge Drinking Not on file 01/02 Comments No Sex and Gender Information Value Date Recorded Sex Assigned at Female 03/23/2025 12:06 PM CDT Legal Sex Female 9:26 PM CDT Gender Identity Not on file Sexual Orientation Not on file COVID-19 Exposure Response Date Recorded In the last 10 days, have yo u been in contact with someone who was confirmed or suspected to have Coronavirus/COVID-19? No / Unsure 05/08/2023 8:11 AM CDT documented as of this encounter Plan of Treatment Not on file documented as of this encounter Visit Diagnoses Not on filedocumented in this encounter Care Teams Cut Out Stitcher Relationship Specialty Start Date End Date Tia Corley NP [address] [place] [address] PCP - General NURSE PRACTITIONER 08/10/19 documented as of this encounter
--- OUTSIDE RECORDS SUMMARY | 2025-09-16 10:22 | XMS_ITS | Clinical Summary ---
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
--- OUTSIDE RECORDS SUMMARY | 2025-09-16 10:22 | XMS_ITS | Encounter Summary ---
Author Organization [facility] Address [address] [place] [address] Care Team Providers Care Blacktop Paver Operator Name Role Phone Tia Corley CELLULAR BIOLOGIST Primary Care Provider [phone] Encounter Details Date Type Department Care Team (Late st Contact Info) Description 04/11/2022 [employer] Message [employer] [facility] Family Medicine [address] [phone] [employer], [facility] Provider Return to work Social History Tobacco Use Types Packs/Day Years [...] suspected to have Coronavirus/COVID-19? No / Unsure 04/11/2022 8:15 AM CDT documented as of this encounter Plan of Treatment Not on file documented as of this encounter Visit Diagnoses Not on filedocumented in this encounter Care Teams Blacktop Paver Operator Relationship Specialty Start Date End Date Tia Corley NP [address] [place] [address] PCP - General NURSE PRACTITIONER 08/10/19 documented as of this encounter
--- OUTSIDE RECORDS SUMMARY | 2025-09-16 10:22 | XMS_ITS | Clinical Summary ---
Author Organization [facility] Address [address] [place] [address] Care Team Providers Care Ski Lift Operator Name Role Phone Tia Corley JANETH-LICENSED REAL ESTATE BROKER Primary Care Provider [phone] Source Comments [facility],non-owned Affiliates and Associated Physician Practices is amultiple site organization consisting of ambulatory clinics and hospital sitesin [place], [place], [place] and [place]. This disclosure is being madepursuant to the Care Everywhere program and may not contain all information available regarding this patient. 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 Gender Identity Not on file Sexual Orientation Not on file Last Filed Vital Signs Vital Sign Reading Time Taken Comments Blood Pressure 123/77 11/13/2020 3:30 PM UI DEVELOPER DESIGNER Pulse 89 11/13/2020 3:30 PM UI DEVELOPER DESIGNER Temperature 36.9 C (98.4 F) 11/13/2020 9:05 AM UI DEVELOPER DESIGNER Respiratory Rate 11 11/13/2020 3:30 PM UI DEVELOPER DESIGNER Oxygen Saturation 98% 11/13/2020 3:30 PM UI DEVELOPER DESIGNER Inhaled Oxygen Concentration - - Weight 83.8 kg (184 lb 11.9 oz) 11/22/2020 1:51 PM UI DEVELOPER DESIGNER Height 168 cm (5' 6.14) 01/16/2018 10: 07 AM UI DEVELOPER DESIGNER Body Mass Index - - Plan of [...] patient's age to complete this topic Insurance [employer] [facility] Address: [facility] [address] [place] [address] MEDICAID - [place] Care Teams Ski Lift Operator Relationship Specialty Start Date End Date Tia Corley [place] [address] PCP - General Allergy and Immunology 12/27/17
--- OUTSIDE RECORDS SUMMARY | 2025-09-16 10:22 | XMS_ITS | Data Portability ---
Author Organization [employer] , [facility]_Ernesto Address [address] [place] [address] Assessment Encounter Date Assessment Date Assessment LastModified by Organization Details LastModified Time 12/10/2024 12/10/2024 Subclinical hypothyroid Endometriosis COUNSELING was provided today regarding the following: - CHC use was discussed with the patient in detail including CHC risks, benefits, side effects, and ACHES. - Back-up contraception was encouraged if the patient misses pills or takes antibiotics. - Condoms should be used for STI prevention. - No absolute contraindications to KEILA use were identified. sarah Not available 12/10/2024 14:06:10 02/24/2025 02/24/2025 - 19-year-old female with a history of polycystic ovary syndrome presenting for a routine gynecological examination including Pap smear. - Intermittent pelvic pain persists but shows some improvement. - Referral to dermatology due to hidradenitis suppurativa for further management. sarah Not available 02/24/2025 21:01:15 Plan of Treatment Reminders Order Date Submit Date Provider Last Modified By Organization Details Last Modified Time Details Appointments [employer]ONO 30 2024 11:15A M Ultrasound Kim 4 Not available Not available Not available [employer] EST 2024 11:45A M JEROD FOUNTAIN CNM Not available Not available Not available Lab beta- HCG, quant itati ve, serum or plasm a 2024 025 [employer]et [employer] [facility], [address] [facility], [place], [address], 09/09/2025 09:07:22 beta- HCG, quant itati ve, serum or plasm a - To be drawn on 09/10 after 10am 2024 025 [employer] [facility], [address], [place], [address], 09/12/2025 06:59:32 pregn ezra test, urine 2024 025 [email or web address] [facility], [address] [place], [address], 09/08/2025 11:20:10 pap, LB 2024 025 [employer] [facility], [address] [place], [address], 02/26/2025 18:48:19 unlis olvin lab - Pap refle x hold plus CT/GC /tric h 2024 025 MICHAEL[employer]olographic [employer] for [employer] [facility], [address] [place] [address], [address], 02/27/2025 07:50:59 pregn ezra test, urine 2024 025 [facility], [address] [place], [address], 01/28/2025 13:46:44 bacte rial vagin osis + vagin itis panel , vagin al 2024 025 [employer]HA[employer] [facility], [address] [place] [address], [address], 12/25/2024 13:17:34 lh + FSH, serum 2024 025 [facility], [address] [place] [address], [address], 12/11/2024 13:41:05 prola ctin, serum 2024 025 [facility], [address] [place] [address], [address], 12/11/2024 13:41:03 gluco se, fasti ng, QN, serum or plasm a 2024 025 [employer]HA[employer]GigaSp[employer] [facility], [address] [place] [address], [facility] [address], [place], [address], 12/22/2024 02:45:41 insul in, serum 2024 025 [employer]HAELG[employer] [facility], [address] [place] [address], [facility] [address], [place], [address], 12/22/2024 02:45:41 HbA1c (hemo globi n A1c), blood 2024 025 [employer]HAELG[employer]Sp[employer] [facility], [address] [place] [address], [facility] [address], [place], [address], 12/22/2024 02:45:42 beta- HCG, quant itati ve, serum or plasm a 2024 025 [facility], [address] [place], [address], 12/11/2024 13:41:01 testo stero ne, total , serum 2024 025 [employer]HAELMonet [employer] [facility], [address] [facility], [place], [address], 12/22/2024 02:45:43 Referral derma tolog ist refer ral 2024 025 [email or web address] [facility], [address], [place], [address], 05/18/2025 16:19:58 Procedures None recor ded. Surgeries None recor ded. Imaging US, trans vagin al 2024 025 MICHAEL Not available 09/14/2025 16:26:50 US, trans vagin al 2024 025 MICHAEL Not available 12/21/2024 15:20:02 Medication Orders benzo yl perox leticia 5 % topic al clean ser 2024 [facility], [address], [place], [place], [id number], 09/08/2025 10:56:16 clind amyci n 1 % topic al gel 2024 [facility], [address], [place], [place], [id number], 09/08/2025 10:56:20 drosp ireno ne 3 mg-et hinyl estra diol 0.03 mg table t 2024 [facility]14, [address], [place], [place], [id number], 09/08/2025 10:56:22 clind amyci n 1 % topic al gel 2024 025 [facility], [address], [place], [place], [id number], 09/08/2025 10:56:09 benzo yl perox leticia 5 % topic al clean ser 2024 025 [facility], [address], [place], [place], [id number], 09/08/2025 10:56:06 NuvaR ing 0.12 mg-0. 015 mg/24 hr vagin al 2024 025 [facility]11, [address], [place], [place], [id number], 01/28/2025 12:51:18 Patient TargetsNo targets recorded. Patient Instructions Encounter Date Encounter Id Patient Instructions Last Modified By Organization Details Last Modified Time 12/21/2024 [id number] polycystic ovary syndrome: care instructions Not available 12/21/2024 12:55:17 diet and exercis e for metabolic syndrome: care instructions Not available 12/21/2024 12:55:17 continuous cycli ng on oral contraceptives Not available 12/21/2024 12:55:17 -Today we discussed PCOS and its physiology. We discussed the hormonal implications as well as the physical findings that come with this diagnosis. -I have strongly recommended weight control through maintaining a healthy diet and regular exercise both cardiovascular and muscle building. -We have discussed treatments for symptoms as well as the importance of cycle control to avoid endometrial hyperplasia and malignancy. because the patient's goal is to prevent at this time, we discussed the various hormonal contraceptive options for endometrial protection. -Reviewed supplements that can be beneficial including omega 3, berberine, danuta-inositol, vit D3 and magnesium. -Pt had unprotected intercourse on 12/08, use condoms if sexually active will plan to start Nuvaring after her next menses and negative upt at home. Pt will message portal with UPT results. -RTC 2 months for Pap and control follow up Not available 12/23/2024 18:23:44 02/24/2025 [id number] A healthy lifestyle: care instructions Not available 02/24/2025 12:18:25 Following the [employer] Food Guide: Care Instructions Not available 02/24/2025 12:18:25 exercise program : getting started Not available 02/24/2025 12:18:25 body mass index: care instructions Not available 02/24/2025 21:10:12 contraception information Not available 02/24/2025 12:18:25 - Follow the guidance provided for a Pap smear and report any discomfort. - Monitor pelvic pain and report if symptoms worsen. - Attend the dermatology referral appointment for hidradenitis suppurativa. - Continue current control method as discussed and refill medication as prescribed. - Provide a urine sample as requested to check for any urinary symptoms. [email or web address] Not available 02/24/2025 12:16:40 During today's visit, we discussed the importance of a Pap smear, especially given that the patient is 19 years old and has not had one before. I reassured the patient about the procedure and provided guidance and support to ensure a comfortable experience. We discussed the management of pelvic pain, noting its occasional nature and slight improvement. Regarding hidradenitis suppurativa, the patient agreed to a referral to dermatology for further evaluation and treatment. I provided information about contraception options and issued prescriptions for ongoing control. Additionally, given the potential past urinary symptoms, we will perform a urinalysis to rule out any issues. I provided anticipatory guidance and follow-up instructions for review after a year unless symptoms worsen or need arises. [email or web address] Not available 02/24/2025 12:16:40 Reason for Referral Panel Builder Referral for H idradenitis suppurativa Referring Physician: Nerissa Reynaga, MALL MANAGER, Encounter Date: 02/24/2025 Results Created Date Observation Date Name Description Value Unit Range Abnormal Flag Note LastModifiedBy Organization Detail LastModifiedTime 12/11/1912/11/2024 HCG, TOTAL , QUANT HCG, total, quant < 2 mIU/m L <5 normal Refer ence Range s are for femal es aged 18 years - Adult Nonpr egnan t or preme nopau ana lilia <5 Postm enopa usal <10 Value s from diffe rent assay metho ds may vary. The use of this assay to monit or or to diagn ose patie nts with cance r or any other condi tion unrel ated to pregn ezra has not been valid ated by the bruce actur er of this assay . Not Available [address], [address], 12/11/2024 13:41:01 12/22/19 25 12/22/2024 GLUCO SE, PLASM A glucose, plasma 76 mg/dL 65-99 normal Fasti ng refer ence inter kerline Not Available [employer] [facility] [address] [place], [address], 12/22/2024 02:45:40 12/22/19 25 12/22/2024 INSUL IN insulin 5.8 uIU/m L normal Refer ence Range < or = 18.4 Risk: Optim al < or = 18.4 Moder ate NA High >18.4 Adult cardi ovasc ular event risk categ ory cut point s (opti mal, moder ate, high) are based on Insul in Refer ence Inter kerline studi es perfo rmed at [facility] in 2021. Not Available [employer] [facility] [address], [place], [address], 12/22/2024 02:45:41 12/22/19 25 12/22/2024 HEMOG LOBIN A1C hemoglobin A1C 5.0 %_of_ total _HGB <5.7 normal For the purpo se of scree salma for the prese nce of diabe wilma: <5.7% Consi stent with the absen ce of diabe wilma 5.7-6 .4% Consi stent with incre ased risk for diabe wilma (pred iabet es) > or =6.5% Consi stent with diabe wilma This assay resul t is consi stent with a decre ased risk of diabe wilma. Curre ntly, no conse nsus exist s estefani reza use of hemog lobin A1c for diagn osis of diabe wilma in child tabby. Accor ding to Ameri can Diabe wilma Assoc iatio n (ADA) guide lines , hemog lobin A1c <7.0% repre sents optim al contr ol in non-p regna nt diabe tic patie nts. Diffe rent metri cs may apply to speci fic patie nt popul ation s. Stand ards of Medic al Care in Diabe wilma(A DA). Not Available [employer] [facility] [address], [place], [address], 12/22/2024 02:45:42 12/22/19 25 12/22/2024 TESTO STERO NE, TOTAL , MS testosterone , total, MS 41 NG/dL 2-45 For addit ional infor zayda maya e refer to https ://ed faustoati on.qu silverio pappass. com/f aq/To valerieMaico david mckeon MSM S (This link is being provi ded for infor sam nal/e ducat ional purpo ses only. ) (Note ) This test was devel oped and its linda tical perfo rmanc e tyler cteri stics have been deter mined by [employer]. It has not been clear ed or appro jose manuel by the FDA. This assay has been valid ated pursu ant to the CLIA regul ation s and is used for clini corina purpo ses. F med fussamuel n [address] [facility] [address] [place] [address] [phone] Mushtaq Rees MD, PhD NO COLLE CTION DATE RECEI JOSE MANUEL. WE HAVE USED THE DATE THE SPECI MEN WAS RECEI JOSE MANUEL BY THIS LABOR ATORY THE COLLE CTION DATE. IF THIS IS INCOR RECT, PLEAS E CONTA CT CLIEN T SERVI DOMINGO. PHONE NUMBE R: [phone] Not Available [employer] [facility] [address] , [place], [address], 12/22/2024 02:45:42 12/10/19 25 12/11/2024 PROLA CTIN prolactin 9.4 NG/mL Refer ence Range s Femal e aged 18-Ad ult Nonpr egnan t: 2.8-2 9.2 ng/mL Pregn ant: 9.7-2 08.5 ng/mL Post- menop ausal : 1.8-2 0.3 ng/mL Pregn ezra, lacta tion, and the admin istra tion of oral contr acept lee can incre ase prola ctin jarrett ntrat ions. Not Available [employer] [address] [place], [address], 12/11/2024 13:41:03 12/10/19 25 12/11/2024 FSH AND LH FSH 6.2 mIU/m L Refer ence Range s are for femal es aged 18 years - Adult Kristie l Menst ruati ng Femal e: Folli cular phase : 2.5-1 0.2 mIU/m L Mid-C ycle Peak: 3.4-3 3.4 mIU/m L Lutea l phase : 1.5-9 .1 mIU/m L Pregn ant: <0.3 mIU/m L Post- menop ausal : 23.0- 116.6 mIU/m L Not Available [employer] [address] [place] [address], [address], 12/11/2024 13:41:05 12/10/19 25 12/11/2024 FSH AND LH LH 14.46 U/L Refer ence Range s are for femal es aged 18 years - Adult Kristie l Menst ruati ng Femal e: Folli cular phase : 1.9-1 2.5 mIU/m L Mid-C ycle Peak: 8.7-7 6.3 mIU/m L Lutea l phase : 0.5-1 6.9 mIU/m L Pregn ant: <0.1- 1.5 mIU/m L Post- menop ausal : 15.9- 54.0 mIU/m L Contr acept lee: 0.7-5 .6 mIU/m L Not Available [facility] [employer] [address] [place] [address], [address], 12/11/2024 13:41:05 12/21/19 25 12/25/2024 VAGIN ITIS PLUS STD PANEL bacterial vaginosis BV POS negati ve abnormal Not Available [facility] [employer] [address] [place] [address], [address], 12/25/2024 13:17:34 12/21/19 25 12/25/2024 VAGIN ITIS PLUS STD PANEL jonel species C. spp neg negati ve normal Not Available [employer] [address] [place] [address], [address], 12/25/2024 13:17:34 12/21/19 25 12/25/2024 VAGIN ITIS PLUS STD PANEL jonel glabrata C. gla neg negati ve normal Not Available [employer] [address] [place] [address], [address], 12/25/2024 13:17:34 12/21/19 25 12/25/2024 VAGIN ITIS PLUS STD PANEL trichomonas vaginalis CV/TV TRICH POS negati ve abnormal Not Available [place] [employer] [address] [place] [address], [address], 12/25/2024 13:17:34 12/21/19 25 12/25/2024 VAGIN ITIS PLUS STD PANEL chlamydia trachomatis CT POS negati ve abnormal This repor t is inten ded for us in clini corina monit oring and manag ement [facility]. It is not inten ded for use in medic al-le gal appli catio n. Not Available [address], [address], 12/25/2024 13:17:34 12/21/19 25 12/25/2024 VAGIN ITIS PLUS STD PANEL neisseria gonorrhoeae GC neg negati ve normal This repor t is inten ded for us in clini corina monit oring and manag ement of [facility]. It is not inten ded for use in medic al-le gal appli catio n. Not Available [address], [address], 12/25/2024 13:17:34 01/28/20 25 01/28/2025 pregn ezra test, urine HCG negati ve Not Available [address], [address], 01/28/2025 13:08:20 02/25/20 25 02/26/2025 THINP REP TIS PAP clinical information: normal None given Not Available [employer] [address], [address], 02/26/2025 18:48:19 02/25/20 25 02/26/2025 THINP REP TIS PAP LMP: normal None given Not Available [employer] [address], [address], 02/26/2025 18:48:19 02/25/20 25 02/26/2025 THINP REP TIS PAP prev. Pap: normal None given Not Available [employer] [address] [place], [address], 02/26/2025 18:48:19 02/25/20 25 02/26/2025 THINP REP TIS PAP prev. BX: normal None given Not Available [address], [address], 02/26/2025 18:48:19 02/25/20 25 02/26/2025 THINP REP TIS PAP source: normal Cervi x Not Available [address], [address], 02/26/2025 18:48:19 02/25/2002/26/2025 THINP REP TIS PAP statement of adequacy: normal Satis facto ry for evalu ation . Endoc ervic al/tr ansfo rmati on zone compo nent prese nt. Age and/o r menst rual statu s not provi ded Not Available [address], [address], 02/26/2025 18:48:19 02/25/2002/26/2025 THINP REP TIS PAP interpretati on/result: normal Cytol ogy Resul ts: Negat carol for intra epith elial lesio n or ijeoma syed . Not Available [address], [address], 02/26/2025 18:48:19 02/25/2002/26/2025 THINP REP TIS PAP comment: normal This Pap test has been evalu ated with compu ter alexa olvin techn ology . Not Available [address], [address], 02/26/2025 18:48:19 02/25/2002/26/2025 THINP REP TIS PAP cytotechnolo gist: normal TLS, CT( CP) CT Scree salma Locat ion: [place] [address] Admin [facility] , [facility] [address] Not Available [address], [address], 02/26/2025 18:48:19 02/25/2002/26/2025 THINP REP TIS PAP comment EXPLA NATCARRIE Y NOTE: The Pap is a scree salma test for cervi corina cance r. It is not a diagn ostic test and is subje ct to false negat carol and false posit carol resul ts. It is most relia ble when a satis facto ry sampl e, regul booker obtai kenrick, is submi tted with relev ant clini corina findi ngs and histo ry, and when the Pap resul t is evalu ated along with histo bertrand and curre nt clini corina infor matio n. Not Available [employer] [facility] [address] [place], [address], 02/26/2025 18:48:19 02/25/20 25 02/26/2025 CT/GC /TRIC H + HOLD trichomonas vaginalis TRICH neg negati ve normal Not Available [address], [address], 02/27/2025 07:50:59 02/25/20 25 02/26/2025 CT/GC /TRIC H + HOLD chlamydia trachomatis CT neg negati ve normal This repor t is inten ded for us in clini corina monit oring and manag ement of patie nts. It is not inten ded for use in medic al-le gal appli catio n. Not Available [facility] [employer], [address], 02/27/2025 07:50:59 02/25/20 25 02/26/2025 CT/GC /TRIC H + HOLD neisseria gonorrhoeae GC neg negati ve normal This repor t is inten ded for us in clini corina monit oring and manag ement of patie nts. It is not inten ded for use in medic al-le gal appli catio n. Not Available [facility] [address] [place], [address], 02/27/2025 07:50:59 09/08/2009/09/2025 HCG, TOTAL , QN HCG, total, qn 388 mIU/m L high Refer ence Range Nonpr egnan t or preme nopau ana lilia <5 Postm enopa usal <10 Value s from diffe rent assay metho ds may vary. The use of this assay to monit or or to diagn ose patie nts with cance r or any condi tion unrel ated to pregn ezra has not been clear ed or appro jose manuel by the FDA or the manuf actur er of the assay . Not Available [facility] [facility] [place] [address] [place], [address], 09/09/2025 09:07:22 09/08/2009/08/2025 pregn ezra test, urine HCG positi ve Not Available [address], [place], [address], 09/08/2025 08:23:07 09/11/2009/12/2025 HCG, TOTAL , QN HCG, total, qn 510 mIU/m L high Refer ence Range Nonpr egnan t or preme nopau ana lilia <5 Postm enopa usal <10 Value s from diffe rent assay metho ds may vary. The use of this assay to monit or or to diagn ose patie nts with cance r or any condi tion unrel ated to pregn ezra has not been clear ed or appro jose manuel by the FDA or the [facility] act[facility] er of the assay . Not Available [employer] [facility] [address] [place], [address], 09/12/2025 06:59:32 09/14/2009/15/2025 HCG, TOTAL , QN HCG, total, qn 593 mIU/m L high Refer ence Range Nonpr egnan t or preme nopau ana lilia <5 Postm enopa usal <10 Value s from diffe rent assay metho ds may vary. The use of this assay to monit or or to diagn ose patie nts with cance r or any condi tion unrel ated to pregn ezra has not been clear ed or appro jose manuel by the FDA or the [facility] actur er of the assay . Not Available [facility] [facility] [address] [place], [address], 09/15/2025 10:37:47 12/21/19 25 12/21/2024 US, trans vagin al No observ ation record ed. Lisa [address], [place], [address], 12/21/2024 21:11:19 09/14/2009/08/2025 US, trans vagin al No observ ation record ed. [id number] [address], [place], [address], 09/14/2025 16:33:26 Result Notes None recorded. Problems Name Problem SNOMED Code Status Onset Date Resolution Date Notes Provider Name and Address Organization Details Recorded Time Hidradenitis suppurativa 84440641 Active 2024 NA GARDINER [address] [place] [address], [phone], [employer] 21:08:04 Polycystic ovary syndrome 943311344 Active 2024 NA GARDINER [address] [place] [address], [address], [employer] 21:08:11 Anxiety 11139724 Active 2024 NA GARDINER [address] [place] [address], [phone], [facility] [facility] IV 21:08:33 Problem Notes None recorded. Procedures Surgical History Date Name Laterality Status Provider Name and Address Organization Details Recorded Time 02/25/20 Date of Last Pap Smear completed NA Pollard [address] [place] [address], [phone], [facility] 09/08/2025 10:54:07 tonsillectomy and adenoidectomy completed Carmen Ruff [facility] [employer] [facility] 12/10/2024 11:40:59 Imaging Results None recorded. Procedure Notes None recorded. Medical Equipment None Reported. Allergies Allergen ID Allergen Name Allergen Category Reaction Reaction Severity Criticality Documentation Date Start Date Code Code System Note Provider Name and Address Organization Details Recorded Time 155688 Adderall medicatio n Not available Not available Not available 06/05/2023 95368 RxNorm [facility] [employer] [facility] 3 16:51:51 479406 amoxicill in medicatio n Not available Not available low 12/21/20242020 723 RxNorm Stoma ch ache and rash unrec ogniz ed react ion (text : GI Upset , code: 76013 [id number]) [facility] [employer] [facility] 5 12:13:33 881644 amphetami ne aspartate / amphetami ne sulfate / dextroamp hetamine saccharat e / dextroamp hetamine sulfate medicatio n Not available Not available Not available 09/08/2025 15372 9 RxNorm Not Available michael - External Data Service - prod 5 04:11:52 Medications Name Sig Start Date Stop Date Status Note LastModified by Organization Details LastModified Time medroxyprog esterone 10 mg tablet TAKE 1 TABLET BY MOUTH EVERY DAY FOR 10 DAYS 12/10 completed Not Available Not Available Not Available metformin 500 mg tablet TAKE 1 TABLET BY MOUTH DAILY WITH THE EVENING MEAL FOR DIABETES 09/08 completed Not Available Not Available Not Available doxycycline hyclate 100 mg capsule TAKE 1 CAPSULE BY MOUTH TWICE DAILY FOR 7 DAYS 01/28 completed Not Available Not Available Not Available azithromyci n 250 mg tablet TAKE 2 TABLETS BY MOUTH FOR 1 DAY THEN TAKE 1 TABLET BY MOUTH DAILY FOR 4 DAYS 09/05 completed Not Available Not Available Not Available ibuprofen 800 mg tablet TAKE 1 TABLET BY MOUTH EVERY 6 HOURS NEEDED FOR PAIN. 06/05 completed Not Available Not Available Not Available fluconazole 150 mg tablet take 1 tab po on last day of antibioti cs, then repeat in 3 days. 01/28 completed Not Available Not Available Not Available prednisone 20 mg tablet TAKE 1 TABLET BY MOUTH EVERY DAY 06/05 completed Not Available Not Available Not Available metronidazo le 500 mg tablet TAKE 1 TABLET BY MOUTH TWICE DAILY FOR 7 DAYS 09/05 completed Not Available Not Available Not Available sulfamethox azole 800 mg-trimetho prim 160 mg tablet TAKE 1 TABLET BY MOUTH TWICE A DAY FOR 10 DAYS 06/05 completed Not Available Not Available Not Available ketorolac 10 mg tablet TAKE 1 TABLET BY MOUTH EVERY 8 HOURS FOR 5 DAYS NEEDED 02/24 completed Not Available Not Available Not Available famotidine 20 mg tablet TAKE 1 TABLET BY MOUTH EVERY DAY 06/05 completed Not Available Not Available Not Available clindamycin 1 % topical gel APPLY A THIN LAYER TOPICALLY TO THE AFFECTED AREA TWICE DAILY 09/08 completed Not Available Not Available Not Available cephalexin 500 mg capsule 12/10 completed Not Available Not Available Not Available prednisone 50 mg tablet 12/10 completed Not Available Not Available Not Available montelukast 10 mg tablet 12/10 completed Not Available Not Available Not Available ergocalcife rol (vitamin D2) 1,250 mcg (50,000 unit) capsule TAKE 1 CAPSULE BY MOUTH 1 TIME A WEEK FOR 8 DOSES 09/08 completed Not Available Not Available Not Available ibuprofen 600 mg tablet TAKE 1 TABLET BY MOUTH 3 TIMES A DAY NEEDED FOR PAIN 06/05 completed Not Available Not Available Not Available benzoyl peroxide 5 % topical cleanser APPLY A THIN LAYER TO THE AFFECTED AREA(S) BY TOPICAL ROUTE ONCE DAILY x90 days follow with Clindamyc in gel 09/08 completed Not Available Not Available Not Available methylpredn isolone 4 mg tablets in a dose pack TAKE 6 TABLETS ON DAY 1 DIRECTED ON PACKAGE AND DECREASE BY 1 TAB EACH DAY FOR A TOTAL OF 6 DAYS 12/10 completed Not Available Not Available Not Available albuterol sulfate HFA 90 mcg/actuati on aerosol inhaler INHALE 2 PUFFS INTO THE LUNGS EVERY 6 HOURS NEEDED 02/24 completed Not Available Not Available Not Available hydroxyzine HCl 10 mg tablet 09/08 completed Not Available Not Available Not Available ondansetron 4 mg disintegrat ing tablet LET 1 TABLET DISSOLVE ON OR UNDER THE TONGUE EVERY 6 HOURS NEEDED FOR NAUSEA AND VOMITING 12/11 completed Not Available Not Available Not Available fluoxetine 20 mg capsule TAKE 2 CAPSULES BY MOUTH EVERY DAY 09/08 completed Not Available Not Available Not Available fluticasone propionate 50 mcg/actuati on nasal spray,suspe nsion SHAKE LIQUID AND USE 1 SPRAY IN EACH NOSTRIL DAILY 12/10 completed Not Available Not Available Not Available sertraline 50 mg tablet 09/08 completed Not Available Not Available Not Available drospirenon e 3 mg-ethinyl estradiol 0.03 mg tablet Take 1 tablet every day by oral route. 09/08 completed Not Available Not Available Not Available naproxen 500 mg tablet TAKE ONE TABLET BY MOUTH TWICE DAILY WITH FOOD 12/11 completed Not Available Not Available Not Available cyclobenzap rine 5 mg tablet TAKE 1 TABLET BY MOUTH NIGHTLY NEEDED FOR MUSCLE SPASMS. 06/05 completed Not Available Not Available Not Available nitrofurant oin monohydrate /macrocryst als 100 mg capsule TAKE 1 CAPSULE BY MOUTH EVERY 12 HOURS FOR 5 DAYS WITH FOOD 02/24 completed Not Available Not Available Not Available Concerta 12/11 completed Not Available Not Available Not Available Antiseptic Skin Cleanser (chlorhexid ine) 4 % liquid APPLY TO AFFECTED AREA EVERY DAY NEEDED 06/05 completed Not Available Not Available Not Available + DHA active Not Available Not Available Not Available Xulane 150 mcg-35 mcg/24 hr transdermal patch APPLY ONE PATCH WEEKLY FOR 3 MONTHS, TAKE ONE WEEK BREAK AND REPEAT CYCLE - EXTENDED CYCLE DOSING. 12/11 completed Not Available Not Available Not Available dextroamphe tamine-amph etamine ER 37.5 mg capsule, 3 bead, ext rel 24hr TAKE 1 CAPSULE BY MOUTH EVERY DAY IN THE MORNING FOR 30 DAYS 12/10 completed Not Available Not Available Not Available Mydayis 50 mg capsule extended release 24 hr TAKE 1 CAPSULE BY MOUTH EVERY DAY IN THE MORNING FOR 30 DAYS 12/11 completed Not Available Not Available Not Available Aurovela Fe 1-20 (28) 1 mg-20 mcg (21)/75 mg (7) tablet TAKE 1 TABLET BY MOUTH DAILY 09/08 completed Not Available Not Available Not Available EnilloRing 0.12 mg-0.015 mg/24 hr vaginal ring INSERT 1 RING VAGINALLY EVERY MONTH 01/28 completed Not Available Not Available Not Available Vitals Date Recorded Body height Body mass index (BMI) Body weight Body temperature Systolic And Diastolic Provider Name and Address Organization Details Last Updated DateTime 12/10/2024 172.72 cm 31.7 kg/m2 90007.3 7 g 98.1 [degF] 118/74 mm[Hg] [facility] [employer] IV 11:45:08 Date Recorded Body height Body mass index (BMI) Body weight Body temperature Systolic And Diastolic Provider Name and Address Organization Details Last Updated DateTime 12/21/2024 172.72 cm 32.2 kg/m2 20342.8 6 g 98.1 [degF] 116/78 mm[Hg] [facility] [employer] IV 12:19:43 Date Recorded Body height Body mass index (BMI) Body weight Systolic And Diastolic Provider Name and Address Organization Details Last Updated DateTime 01/28/2025 172.72 cm 32.4 kg/m2 21156.89 g 122/70 mm[Hg] [facility] [employer] [facility] IV 01/28/2025 12:53:06 Date Recorded Body height Body mass index (BMI) Body weight Systolic And Diastolic Provider Name and Address Organization Details Last Updated DateTime 02/24/2025 172.72 cm 32.7 kg/m2 65325.64 g 126/74 mm[Hg] Katerine Zamora [facility] [employer] [facility] IV 02/24/2025 11:29:01 Date Recorded Body height Body mass index (BMI) Body weight Systolic And Diastolic Provider Name and Address Organization Details Last Updated DateTime 09/08/2025 172.72 cm 31.6 kg/m2 16553.21 g 120/62 mm[Hg] Carmen Newby [facility] [employer] IV 09/08/2025 10:59:17 Social History Question Answer Notes LastModified by Organizat ion Details LastModified Time Tobacco Smoking Status Never Smoker Rachel christopher, [facility] [employer] IV 06/05/2023 16:54:03 Are You Blind Or Do You Have Difficulty Seeing? [email or web address] Information not available 06/05/2023 Are You Deaf Or Do You Have Serious Difficulty Hearing? No [email or web address] Information not available 06/05/2023 What Type Of Diet Are You Following? REGULAR [email or web address] Information not available 06/05/2023 What Is The Highest Grade Or Level Of School You Have Completed Or The Highest Degree You Have Received? [id number] [email or web address] Information not available 12/11/2023 What Is Your Relationship Status? Single [email or web address] Information not available 06/05/2023 Are You Sexually Active? Yes [email or web address] Information not available 06/05/2023 Sex: Female Functional Status Question Answer Note LastModified by Organizat ion Details LastModified Time Do you use any illicit or recreational drugs? No [email or web address] Information not available 06/05/2023 Do you or have you ever used any other forms of tobacco or nicotine? No [email or web address] Information not available 12/11/2023 What is your level of alcohol consumption? None [email or web address] Information not available 06/05/2023 Are you currently employed? 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 Information not available 12/11/2023 What is your exercise level? None [email or web address] Information not available 12/11/2023 Mental Status None recorded. Family History Relationship Description Onset Age of this Age Resolved Age Notes LastModified by Organization Details LastModified Time Father No current problems or disability [email or web address] Not available 04/2023 16:53:29 Mother No current problems or disability [email or web address] Not available 04/2023 16:53:29 Medical History Condition Response ADD/ADHD Y Anxiety Disorder Y Polycystic Ovarian Syndrome Y Endometriosis Y Gynecological History Statement/Question Response Date of Last Colonoscopy Flow Moderate Date of LMP 06/16/2025 Most Recent Bone Density HPV Vaccine N Date of Last Pap Smear 02/24/2025 Most Recent Mammogram Current Control Method Age at Menarche 10 Obstetrics History GPAL:G 0 P 0 0 0 0 Past Encounters Encounter ID Performer Location Encounter Start Date Encounter Closed Date Diagnosis/Indication Diagnosis SNOMED-CT Code Diagnosis ICD10 Code Diagnosis IMO Codes Diagnosis Note [id number] Bethanie Altamirano CNM [facility] [address] [facility] [place] [address] 06/05/2023 16:41:32 06/06/2023 09:02:48 Missed period 98824125 N92.5 Dysmenorrhea 869753454 N 94.6 Pt has strong family h/o endometrio sis. Has tried COCs but can't remember to take consistent ly. Would like start transderma l contracept ion.COUNSE SHERLEY was provided today regarding the following: - CHC use was discussed with the patient in detail including starting CHC risks, benefits, side effects, and ACHES. - Backup contracept ion x 2 weeks after quick start today - Condoms should be used for STI prevention . - No absolute or relative contraindi cations to KEILA use were identified f/u in 3-6 months Venereal d isease screening 541436533 Z11.3 [id number] AALIYAH ALEXANDER [facility] [address] [place] [address] 12/11/2023 13:52:35 12/11/2023 17:22:45 Secondary amenorrhea 619652630 N91.1 LMP 09/07/2023 Hx of endometrio sis, has never had any luck with HMBPatient states usually skips one month but never 3 months with no cycle.Home UPT: negativeUP T in office today negativeDi scussed lifestyle modificati ons that can help with hormonal balance and cycles.Lab s [facility] RTC for TVUS- PA case sent. [id number] AALIYAH ALEXANDER [facility] [address] [place] [address] 12/24/2023 15:42:37 12/25/2023 11:49:37 Amenorrhea 96808596 N91.1 -TVUS reviewed and discussed with patient.-T VUS shows endo and ovaries WNL.-Labs reviewed and discussed with patient-La bs significan t for subclinica l hyperthyro idism. referral for endocrinol ogist due to being symptomati c. Patient will contact PCP as well.-Rx sent for Provera and discussed taking for no cycles longer than 90 days. [id number] NA GARDINER [facility] [address] [place] [address] 12/10/2024 11:07:01 12/10/2024 14:34:58 Irregular periods 70962950 N92.6 990155 -Discussed etiology of PCOS/ anovulatio n as cause of irregular cycles.-Di scussed Hormonal control to help regulate cycle. Pt states has been on OCP and forgets pills.Trie d Nexplanon in the past and made her gain a significan t amount of weight, did not like BC patch. -Discussed other options such as Nuvaring, Depo Provera, and IUD. Pt is interested in trying Nuvaring. COUNSELING was provided today regarding the following: - CHC use was discussed with the patient in detail including CHC risks,bene fits, side effects, and ACHES.- Back-up contracept ion was encouraged if the patient misses pills or takes antibiotic s.- Condoms should be used for STI prevention .- No absolute contraindi cations to KEILA use were identified . --PCOS workup labs today, PCP has recently checked TSH and Lipid Panel--STI screening at PCP was negative a few months ago, pt has not had a new partner and declines testing today--Sub clinical hyperthyro id is being managed by PCP--RTC in 2 weeks with TVUS [id number] NA GARDINER [facility] [address] [place] [address] 12/21/2024 11:32:30 12/24/2024 14:57:47 Polycystic ovaries 59047305 E28.2 L68.0 -TVUS showed- Multiple peripheral follicles to bilateral ovaries, mild free fluid, and Normal uterus. -Today we discussed PCOS and its physiology . We discussed the hormonal implicatio ns as well as the physical findings that come with this diagnosis. -I have strongly recommende d weight control through maintainin g a healthy diet and regular exercise both cardiovasc ular and muscle building. -We have discussed treatments for symptoms as well as the importance of cycle control to avoid endometria l hyperplasi a and malignancy . because the patient's goal is to prevent at this time, we discussed the various hormonal contracept carol options for endometria l protection . -Reviewed supplement s that can be beneficial including omega 3, berberine, danuta-inosit ol, vit D3 and magnesium. -Pt had unprotecte d intercours e on 12/08, use condoms if sexually active will plan to start Nuvaring after her next menses and negative upt at home. Pt will message portal with UPT results. -RTC 2 months for Pap Postcoital bleeding 4888 0000 N93.0 036620 Sureswab collected to rule out infections as cause of PCB, plan for pt to return to clinic for pap sureswab neg. Hidradenit is suppurativa 21939251 L73.2 878 -Warm Compress -Cleans with 5% benzoyl peroxide, then apply topical clindamyci n BID x 3 months -Start clindamyci n 1 % topical gel 1 applicatio n 2 times a day for 90 days -Start benzoyl peroxide 5 % topical cleanser APPLY A THIN LAYER TO THE AFFECTED AREA(S) BY TOPICAL ROUTE ONCE DAILY [id number] NA GARDINER [facility] [address] [place] [address] 01/28/2025 12:44:10 01/28/2025 14:20:53 Pain in pelvis 43506121 R10.2 17403 severe right sided pelvic pain that started last night, intermitte nt every 5-10 minutes- right lower quadrant with heavy vaginal bleedingSe veronica localized pain to right lower pelvic region- pt is in tears after palpation of area.Advis ed patient to be seen in ER due to severity of pain. [id number] NA GARDINER [facility] [address] [place] [address] 02/24/2025 11:02:55 02/25/2025 11:27:15 Gynecologic examination 55524505 Z01.419 - Routine examinatio n and Pap smear conducted with reassuranc e provided.- Last Pap: has not had previously -Pap and STI testing collected today- Contracept ion: OCP- Denies family h/o breast, ovarian, uterine, colon, or pancreatic cancer- BMI counseling , diet and exercise reviewed- STI prevention discussed- Dietary supplement s: multivitam in, Vit D, fish oilRTO for annual or PRN Screening for malignant neoplasm of cervix 222926654 Z12.4 ASCCP guidelines reviewed with patient. Pap Hx: No prior pap, pap collected today. Pt states understand ing and is amenable to POC. Depression screening 171 675434 Z13.31 See PHQ-9 Screening Hidradenit is suppurativa 27735464 L73.2 878 -benzoyl peroxide topical cleanser and clindamyci n gel have minimally improved symptoms-r eferral to dermatolog y for consultati on and management Uses oral contraception 7032936 Z30.41 [id number] COUNSELING was provided today regarding the following: - CHC use was discussed with the patient in detail including CHC risks,bene fits, side effects, and ACHES.- Back-up contracept ion was encouraged if the patient misses pills or takes antibiotic s.- Condoms should be used for STI prevention .- No absolute contraindi cations to KEILA use were identified . [id number] NA Pollard [facility] [address] [place] [address] 09/08/2025 10:28:21 09/08/2025 11:20:46 test positive 190657303 Z32.01 406235 Missed period 17616687 N 92.6 1581496 0.90 endometria l liningNo GS visualized todayEarly gestationa l age versus MABHCG today and will repeat in 48hrs Cyst of right ovary 1223 903594 5847493 N83.201 036164 5.22cm right ovarian cyst on ultrasound todayDiscu ssed ovarian torsion. Will repeat u/s at next OB visit to repeat confirm viability Health Concerns Section Related Observation LastModified by Organization Detai ls LastModified Time None Recorded Concern Status LastModified by Organization Details LastModified Time None Recorded Advance Directives Directive None Recorded Payers Insurance Date Sequence Insurance Name Policy Number Policy Palencia Covered Member ID Palencia Member ID Guarantor Name 01/28/2025 2 [place] Priscilla Olson [id number] Priscilla Olson 12/10/2024 1 [facility] B[facility] (HMO) Priscilla Olson [id number] Priscilla Olson 12/10/2024 2 [place] [employer] [place] [employer] Priscilla Olson [id number] Priscilla Olson 05/31/2025 PAYMENT PLAN Priscilla Olson 09/09/2025 1 [employer] - OPEN ACCESS Yuliet Olson [id number] Priscilla Olson Notes Date Note Type Note Provider Name and Address Organization Details Recorded Time 12/10/2024 text/html ROS as noted in the HPI Priscilla is here today due to irregular periods. Pt states that she will go 6 months without a period. Had menses on 11/08/24, that only lasted 1 day. LMP on 12/03/24- has been irregular spotting. Menstrual bleeding alternates between light and heavy flow. Would like to discuss hormonal control to regulate menstrual cycle. NA GARDINER [address] [facility], [place], [address], [employer] 12/10/2024 14:06:52 12/21/2024 text/html Irregular PeriodsReported by PatientROS as noted in the HPI Patient presents for US follow up. Patient had US in office today for irregular cycles. Reports that bleeding has improved. LMP: 12/03/2024, Last pap: never. NA GARDINER [address] [facility], [place], [address], [employer] IV 12/23/2024 18:28:11 01/28/2025 text/html ROS as noted in the HPI Priscilla present today for bleeding while on control. Pt states that the Nuvaring was not working for her. She went to her PCP and she started her on pills until she could be seen today. Pt states that she bleed through her pad over night and has changed her pad 2 times since waking up. Pt states that she is cramping and the pain goes down to her knees. NA GARDINER [address] [facility], [place], [address], [employer] [place] 01/28/2025 14:05:25 02/24/2025 text/html ROS as noted in the HPI - Priscilla is a 19-year-old female presenting with a request for a routine gynecological examination including a Pap smear. - She reports experiencing intermittent pelvic pain, which shows some improvement but still occurs occasionally. - Hidradenitis suppurativa is being managed; however, persistent symptoms prompt a referral to dermatology. - No active urinary symptoms are noted, but the patient has a history suggesting possible past urinary tract issues. - Ongoing contraception management and education are provided, confirming effective control use. Gynecological History: - Polycystic ovary syndrome diagnosed Past Medical History: - Hidradenitis suppurativa Family History: - No family history of breast cancer reported NERISSA REYNAGA ARSENIO [address] [facility], [place], [address], [facility] [employer] IV 02/24/2025 21:10:41 09/08/2025 text/html ROS as noted in the HPI Pt presents for OB confirmation visit.Pt's LMP 06/16/25, however, with her PCOS her menses are irregularPt denies bleeding, cramping, or n/v. Pt states she is not currently taking any medications. Pt has no other concerns.Her last pap was: 02/24/25FOB involved Danette Perales [place] [address] [facility], [place], [address], [facility] [employer] IV 09/08/2025 13:47:23 OBGyn Episode No OBEpisode recorded.
== END 2025-09-16 09:38 | disposition left against medical advice (07) ==
PROVIDERS: PCP Nurse Practitioner
DX: Z53.21 Procedure and treatment not carried out due to patient leaving prior to being seen by health care provider (principal)
CPT/HCPCS: 99199